=== PATIENT | female | born 1945 | race Caucasian/White ===

== ENCOUNTER 2017-12-25 07:58 | Emergency (ER) | payer MEDICARE, OTHER ==
[~2017-12-25] VITALS: Ht 165.1 cm; Wt 77.3 kg
[~2017-12-25 07:58] MED LIST: ALPR-623 PO; APIX5TAB3 PO; ASPI-611 PO; ATOR10TA70 PO; BENA40TA2 PO; CALC600T82 PO; GLIM2TAB2 PO; HYDR12.5 PO; LEVO100T46 PO; METF1000 PO; METO25TA6 PO; NOR5T PO
[2017-12-25 08:44] LABS: BASOPHILS % (AUTO) 0.2 % (0-1); EOSINOPHILS # (AUTO) 0.3 X10'3 (0-0.9); HEMATOCRIT 36.5 % (35.0-45.0); HEMOGLOBIN 12.4 g/dl (12.0-16.0); LYMPHOCYTES # (AUTO) 1.2 X10'3 (1.1-4.8); LYMPHOCYTES % (AUTO) 10.9 % (21-51); MEAN CORPUSCULAR HEMOGLOBIN 28.7 PG (27.0-31.0); MEAN CORPUSCULAR HGB CONC 34.1 % (33.0-36.5); MEAN CORPUSCULAR VOLUME 84.2 FL (78-98); MEAN PLATELET VOLUME 9.2 FL (7.4-10.4); MONOCYTES # (AUTO) 0.8 X10'3 (0-0.9); NEUTROPHILS # (AUTO) 8.6 X10'3 (1.8-7.7); NEUTROPHILS % (AUTO) 78.9 % (42-75); PLATELET COUNT 288 X10'3 (140-440); RED BLOOD COUNT 4.34 X10'6 (4.20-5.60); RED CELL DISTRIBUTION WIDTH 17.2 % (11.5-14.5); WHITE BLOOD COUNT 10.9 X10'3 (4.5-11.0)
[2017-12-25 09:03] LABS: ALANINE AMINOTRANSFERASE 24 U/L (12-78); ALBUMIN 3.5 G/DL (3.4-5.0); ALBUMIN/GLOBULIN RATIO 0.8 (1.1-1.5); ALKALINE PHOSPHATASE 69 IU/L (46-116); ANION GAP 10 (8-16); ASPARTATE AMINO TRANSFERASE 17 U/L (10-37); BILIRUBIN,TOTAL 0.7 MG/DL (0.1-1.0); BLOOD UREA NITROGEN 22 MG/DL (7-18); CALCIUM 9.3 MG/DL (8.5-10.1); CHLORIDE 103 MMOL/L (99-107); CREATININE 1.05 MG/DL (0.40-0.90); GLUCOSE 160 MG/DL (70-104); POTASSIUM 3.8 MMOL/L (3.5-5.1); SODIUM 142 MMOL/L (135-145); TOTAL CARBON DIOXIDE 29.2 MMOL/L (24-32); TOTAL PROTEIN 7.9 G/DL (6.4-8.2); TROPONIN I < 0.04 NG/ML (0.0-0.05); eGFR 52 ML/MIN
[2017-12-25 09:11] LABS: MAGNESIUM 1.7 MG/DL (1.5-2.4)
[2017-12-25 09:25] VITALS: BP 182/61
[2017-12-25] MEDS ORDERED: HYDROcodone/acetaminophen 10/325mg tab PO STA (09:31)
[2017-12-25] MEDS ORDERED: CYCL-1 PO (10:01)
[2017-12-25 10:06] LABS: PARTIAL THROMBOPLASTIN TIME 25 SECONDS (22-32); PROTHROMBIN TIME 10.2 SECONDS (9.0-12.0)
== END 2017-12-25 10:17 | disposition home or self-care (01) ==
LOC: ER 07:59
DX: M62.838 Other muscle spasm (principal); M54.2 Cervicalgia; I10 Essential (primary) hypertension; E78.00 Pure hypercholesterolemia, unspecified; E11.9 Type 2 diabetes mellitus without complications; G89.29 Other chronic pain; I25.2 Old myocardial infarction; I25.10 Atherosclerotic heart disease of native coronary artery without angina pectoris; I48.91 Unspecified atrial fibrillation; Z86.73 Personal history of transient ischemic attack (TIA), and cerebral infarction without residual deficits; Z95.1 Presence of aortocoronary bypass graft; Z79.84 Long term (current) use of oral hypoglycemic drugs; Z79.82 Long term (current) use of aspirin; Z79.899 Other long term (current) drug therapy
CPT/HCPCS: 36415; 71046; 72052; 72125; 80053; 82948; 83735; 84484; 85025; 85610; 85730; 93005; 99285

== ENCOUNTER 2018-02-15 06:12 | Inpatient (IN) | payer MEDICARE, OTHER ==
[2018-02-14 11:43] LABS: CLARITY,URINE CLEAR (Clear); COLOR,URINE YELLOW (Yellow); GLUCOSE, URINE NEGATIVE (Neg); KETONES,URINE NEGATIVE (Neg); LEUKOCYTE ESTERASE ,URINE NEGATIVE (Neg); NITRITES, URINE NEGATIVE (Neg); OCCULT BLOOD,URINE NEGATIVE (Neg); PROTEIN,URINE 30 mg/dl (Neg); UROBILINOGEN,URINE 0.2 E.U/dL (0.2-1.0)
[2018-02-14 11:43] LABS: BASOPHILS % (AUTO) 0.3 % (0-1); EOSINOPHILS # (AUTO) 0.2 X10'3 (0-0.9); EOSINOPHILS % (AUTO) 2.7 % (0-6); LYMPHOCYTES # (AUTO) 1.3 X10'3 (1.1-4.8); LYMPHOCYTES % (AUTO) 16.5 % (21-51); MEAN CORPUSCULAR HEMOGLOBIN 28.4 PG (27.0-31.0); MEAN CORPUSCULAR HGB CONC 33.3 % (33.0-36.5); MEAN CORPUSCULAR VOLUME 85.3 FL (78-98); MEAN PLATELET VOLUME 9.5 FL (7.4-10.4); MONOCYTES # (AUTO) 0.7 X10'3 (0-0.9); MONOCYTES % (AUTO) 8.1 % (2-12); NEUTROPHILS # (AUTO) 5.8 X10'3 (1.8-7.7); NEUTROPHILS % (AUTO) 72.4 % (42-75); PRE OP HEMATOCRIT 39.8 % (35.0-45.0); PRE OP HEMOGLOBIN 13.2 g/dL (12.0-16.0); PRE OP PLATELET COUNT 247 X10'3 (140-440); RED BLOOD COUNT 4.66 X10'6 (4.20-5.60)
[2018-02-14 11:46] LABS: UA COLLECTION TYPE CLN CATCH MIDSTREAM
[2018-02-14 11:48] LABS: SQUAMOUS EPITHELIAL CELL,UR FEW /LPF (FEW)
[2018-02-14 11:49] LABS: BACTERIA,URINE FEW /HPF (Neg); RBC,URINE 0-2 /HPF (0-2); WBC,URINE 0-4 /HPF (0-4)
[2018-02-14 11:52] LABS: HEMOGLOBIN A1C 7.5 % (4.5-6.2)
[2018-02-14 11:56] LABS: ALBUMIN 3.7 G/DL (3.4-5.0); ALBUMIN/GLOBULIN RATIO 0.9 (1.1-1.5); ALKALINE PHOSPHATASE 66 IU/L (46-116); BLOOD UREA NITROGEN 30 MG/DL (7-18); BUN/CREATININE RATIO 25.6 (6.6-38.0); CALCIUM 9.4 MG/DL (8.5-10.1); CHLORIDE 101 MMOL/L (99-107); CREATININE 1.17 MG/DL (0.40-0.90); PRE OP ALT 21 U/L (30-65); PRE OP ANION GAP 5 (8-16); PRE OP AST 17 U/L (10-37); PRE OP BILIRUB, TOTAL 0.4 MG/DL (0.0-1.0); PRE OP POTASSIUM 3.9 MMOL/L (3.4-5.1); PRE OP SODIUM 140 MMOL/L (135-145); TOTAL CARBON DIOXIDE 33.6 MMOL/L (24-32); TOTAL PROTEIN 7.9 G/DL (6.4-8.2); eGFR 45 ML/MIN
[2018-02-14 11:58] LABS: PRE OP GLUCOSE 219 MG/DL (70-104)
[2018-02-15] VITALS (24 sets, daily range): BP systolic 114–186; BP diastolic 45–96
[~2018-02-15] VITALS: Ht 152.4 cm; Wt 78.5 kg
[~2018-02-15 06:12] MED LIST changes: -APIX5TAB3 PO; -BENA40TA2 PO; -CALC600T82 PO; +DOCU-28 PO; +DOCUMENT DATE & TIME OF BETA-BLOCKER PO ONE; +HYDR-565 PO; -HYDR12.5 PO; +LISI-604 PO; +MULT-933 PO; +PANT40TA4 PO; +ceFAZolin inj. 2,000 MG in normal saline 100ml IV soln 100 ML IV ONE; +famotidine 20mg tablet PO ONE
[2018-02-15] MEDS ORDERED: nitroGLYCERIN-Tridil 50MG/D5W 250 ML IV PRN ×2 (06:33→13:05)
[2018-02-15] MEDS ORDERED: phenylephrine inj 10 MG in normal saline 250ml IV soln 250 ML IV PRN (06:33)
[2018-02-15] MEDS: ringers solution, lacted 1,000 ML IV SCH ×2 (07:09→15:39)
[2018-02-15] MEDS ORDERED: LORazepam 2 mg/ml vial IV ONE (07:25)
[2018-02-15] MEDS ORDERED: ondansetron/PF 4mg/2ml inj IV PRN ×2 (08:05→12:15)
[2018-02-15] MEDS ORDERED: HYDROcodone/acetaminophen 5mg/325mg tablet PO PRN (08:05)
[2018-02-15] MEDS ORDERED: CADD PCA waste documentation MC PRN (08:05)
[2018-02-15] MEDS ORDERED: naloxone 0.4 mg/ml inj IV PRN (08:05)
[2018-02-15] MEDS ORDERED: heparin 10,000 units/1 ML INJ ONE (09:26)
[2018-02-15] MEDS ORDERED: LIDOcaine 1% 30ml preserv. free vial ONE (09:27)
[2018-02-15] MEDS ORDERED: LIDOcaine 1% (10mg/ml) 2ml vial ONE (10:00)
[2018-02-15] MEDS ORDERED: sevoflurane 250ml liquid IH ONE (11:10)
[2018-02-15] MEDS ORDERED: ondansetron/PF 4mg/2ml inj ONE ×2 (11:10→12:36)
[2018-02-15] MEDS ORDERED: fentaNYL/PF 50MCG/1 ML 2ML syringe ONE (11:15)
[2018-02-15] MEDS ORDERED: ROPIVAcaine 0.5% (5mg/ml) 30ml vial ONE (11:36)
[2018-02-15] MEDS ORDERED: heparin 1,000unit/ml 10ml vial 10 ML ONE (11:42)
[2018-02-15] MEDS ORDERED: ringers solution, lacted 1,000 ML IV ONE (12:12)
[2018-02-15] MEDS ORDERED: proMETHazine 25mg rectal suppository RC PRN (12:15)
[2018-02-15] MEDS ORDERED: fentaNYL/PF 50MCG/1 ML 2ML syringe IV PRN (12:15)
[2018-02-15] MEDS ORDERED: labetalol 20mg/4ml (5mg/ml) syringe IV PRN (12:15)
[2018-02-15] MEDS ORDERED: hydrALAZINE 20mg/ml inj. IV PRN (12:15)
[2018-02-15] MEDS ORDERED: proCHLORperazine 10 MG/2 ml inj IV PRN (12:15)
[2018-02-15] MEDS ORDERED: LIDOcaine 2% (20mg/ml) 5ml vial ONE (12:34)
[2018-02-15] MEDS ORDERED: ePHEDrine 50MG/ML INJ. ONE (12:35)
[2018-02-15] MEDS ORDERED: glycopyrrolate 0.2mg/ml inj ONE (12:36)
[2018-02-15] MEDS ORDERED: dexamethasone sod phosphate 4mg/ml inj. ONE (12:36)
[2018-02-15] MEDS ORDERED: neostigmine methylsulfate 1 MG/ML 10ml vial ONE (12:36)
[2018-02-15] MEDS ORDERED: rocuronium 10mg/ml inj IV ONE (12:37)
[2018-02-15] MEDS ORDERED: phenylephrine inj 10 MG in normal saline 250ml IV soln 249 ML IV PRN (13:05)
[2018-02-15] MEDS: HYDROmorphone/NS 1 mg/ml CADD 50 ML IV SCH ×6 (13:28→23:00)
[2018-02-15] MEDS: fentaNYL/PF 50MCG/1 ML 2ML syringe IV PRN ×2 (13:57→14:08)
[2018-02-15] MEDS: ceFAZolin 1GM/D5W- ADD-VANTAGE 50 ML IV SCH (16:52)
[2018-02-15] MEDS: glimepiride 1 MG tablet PO SCH (20:00)
[2018-02-15] MEDS: metFORMIN 500mg tablet PO SCH (20:00)
[2018-02-15] MEDS: metoprolol tartrate 25mg tablet PO SCH (20:00)
[2018-02-15] MEDS: atorvastatin 10mg tablet PO SCH (21:05)
[2018-02-15] MEDS: docusate sod 100mg capsule PO SCH (21:05)
[2018-02-15] MEDS: ALPRAZolam 0.25mg tablet PO PRN (21:57)
[2018-02-16] VITALS (25 sets, daily range): BP systolic 130–190; BP diastolic 46–110
[2018-02-16] MEDS: ceFAZolin 1GM/D5W- ADD-VANTAGE 50 ML IV SCH ×2 (00:56→08:37)
[2018-02-16] MEDS: HYDROmorphone/NS 1 mg/ml CADD 50 ML IV SCH ×7 (01:00→13:00)
[2018-02-16] MEDS: metoprolol tartrate 25mg tablet PO SCH ×2 (07:49→20:23)
[2018-02-16] MEDS: docusate sod 100mg capsule PO SCH ×2 (07:49→20:23)
[2018-02-16] MEDS: levoTHYROXINE 100mcg tablet PO SCH (07:49)
[2018-02-16] MEDS: amLODIPine 5mg tablet PO SCH (07:50)
[2018-02-16] MEDS: glimepiride 1 MG tablet PO SCH ×2 (07:50→20:23)
[2018-02-16] MEDS: metFORMIN 500mg tablet PO SCH ×2 (07:50→20:23)
[2018-02-16] MEDS: multivitamins, therapeutics tablet PO SCH (07:50)
[2018-02-16] MEDS: aspirin 81mg tablet.DR PO SCH (07:50)
[2018-02-16] MEDS: pantoprazole 40mg Tablet.DR PO SCH (07:50)
[2018-02-16] MEDS: lisinopril 5mg tablet PO SCH (07:50)
[2018-02-16] MEDS: hydrALAZINE 20mg/ml inj. IV PRN ×2 (16:13→19:16)
[2018-02-16] MEDS: atorvastatin 10mg tablet PO SCH (20:45)
[2018-02-16] MEDS: ALPRAZolam 0.25mg tablet PO PRN (20:45)
[2018-02-17] VITALS (21 sets, daily range): BP systolic 137–184; BP diastolic 53–92
[2018-02-17] MEDS: hydrALAZINE 20mg/ml inj. IV PRN (02:52)
[2018-02-17] MEDS: metFORMIN 500mg tablet PO SCH ×2 (07:07→19:20)
[2018-02-17] MEDS: lisinopril 5mg tablet PO SCH (07:07)
[2018-02-17] MEDS: aspirin 81mg tablet.DR PO SCH (07:07)
[2018-02-17] MEDS: docusate sod 100mg capsule PO SCH ×2 (07:07→19:20)
[2018-02-17] MEDS: amLODIPine 5mg tablet PO SCH (07:07)
[2018-02-17] MEDS: metoprolol tartrate 25mg tablet PO SCH ×2 (07:07→19:19)
[2018-02-17] MEDS: levoTHYROXINE 100mcg tablet PO SCH (07:07)
[2018-02-17] MEDS: pantoprazole 40mg Tablet.DR PO SCH (07:08)
[2018-02-17] MEDS: glimepiride 1 MG tablet PO SCH ×2 (07:08→19:19)
[2018-02-17] MEDS: multivitamins, therapeutics tablet PO SCH (07:08)
[2018-02-17] MEDS ORDERED: LORazepam 2 mg/ml vial IV ONE (09:45)
[2018-02-17] MEDS: ALPRAZolam 0.25mg tablet PO PRN (19:19)
[2018-02-17] MEDS: atorvastatin 10mg tablet PO SCH ×2 (19:32→19:34)
[2018-02-17] MEDS: HYDROcodone/acetaminophen 10/325mg tab PO PRN (21:19)
[2018-02-18] VITALS (10 sets, daily range): BP systolic 89–199; BP diastolic 53–93
[2018-02-18] MEDS: HYDROcodone/acetaminophen 10/325mg tab PO PRN (05:24)
[2018-02-18] MEDS: lisinopril 5mg tablet PO SCH (09:21)
[2018-02-18] MEDS: glimepiride 1 MG tablet PO SCH ×2 (09:21→20:24)
[2018-02-18] MEDS: multivitamins, therapeutics tablet PO SCH (09:22)
[2018-02-18] MEDS: metFORMIN 500mg tablet PO SCH ×2 (09:22→20:24)
[2018-02-18] MEDS: amLODIPine 5mg tablet PO SCH (09:22)
[2018-02-18] MEDS: docusate sod 100mg capsule PO SCH ×2 (09:22→20:24)
[2018-02-18] MEDS: aspirin 81mg tablet.DR PO SCH (09:22)
[2018-02-18] MEDS: metoprolol tartrate 25mg tablet PO SCH ×2 (09:23→20:24)
[2018-02-18] MEDS: levoTHYROXINE 100mcg tablet PO SCH (09:23)
[2018-02-18] MEDS: pantoprazole 40mg Tablet.DR PO SCH (09:23)
[2018-02-18] MEDS ORDERED: lisinopril 5mg tablet PO ONE (12:05)
[2018-02-18] MEDS ORDERED: amLODIPine 5mg tablet PO ONE (12:05)
[2018-02-18] MEDS ORDERED: amLODIPine 5mg tablet PO SCH (12:30)
[2018-02-18] MEDS: lactulose 20gm/30ml cup PO SCH ×2 (13:45→20:24)
[2018-02-18] MEDS: hydrALAZINE 20mg/ml inj. IV PRN (17:04)
[2018-02-18] MEDS: atorvastatin 10mg tablet PO SCH (20:23)
[2018-02-18] MEDS: ALPRAZolam 0.25mg tablet PO PRN (20:44)
[2018-02-19 00:26] VITALS: BP 161/50
[2018-02-19] MEDS: lactulose 20gm/30ml cup PO SCH ×4 (02:00→19:40)
[2018-02-19 07:30] VITALS: BP 180/65
[2018-02-19] MEDS: glimepiride 1 MG tablet PO SCH ×2 (07:55→19:34)
[2018-02-19] MEDS: metFORMIN 500mg tablet PO SCH ×2 (07:56→19:42)
[2018-02-19] MEDS: docusate sod 100mg capsule PO SCH ×2 (07:56→19:41)
[2018-02-19] MEDS: aspirin 81mg tablet.DR PO SCH (07:56)
[2018-02-19] MEDS: metoprolol tartrate 25mg tablet PO SCH ×2 (07:57→19:40)
[2018-02-19] MEDS: multivitamins, therapeutics tablet PO SCH (07:57)
[2018-02-19] MEDS: pantoprazole 40mg Tablet.DR PO SCH (07:57)
[2018-02-19] MEDS: levoTHYROXINE 100mcg tablet PO SCH (07:57)
[2018-02-19] MEDS: amLODIPine 5mg tablet PO SCH (07:57)
[2018-02-19] MEDS ORDERED: lisinopril 10 MG tablet PO SCH (08:00)
[2018-02-19 09:15] VITALS: BP 154/77
[2018-02-19] MEDS: isosorbide mononitrate 30mg tab.SR.24H PO SCH ×2 (09:25→11:45)
[2018-02-19 11:30] VITALS: BP 161/63
[2018-02-19] MEDS: enoxaparin 30mg/0.3ml syringe SUBCUT SCH (11:45)
[2018-02-19] MEDS: polyethylene glycol 3350 17gm powd pack PO SCH (13:23)
[2018-02-19] MEDS: HYDROcodone/acetaminophen 10/325mg tab PO PRN (19:37)
[2018-02-19] MEDS: lisinopril 10 MG tablet PO SCH (19:42)
[2018-02-19] MEDS: atorvastatin 10mg tablet PO SCH (20:01)
[2018-02-19 21:35] VITALS: BP 168/59
[2018-02-19] MEDS: ALPRAZolam 0.25mg tablet PO PRN (22:51)
[2018-02-20] VITALS: BP 123/47
[2018-02-20] MEDS: lactulose 20gm/30ml cup PO SCH ×3 (02:00→14:00)
[2018-02-20 06:44] VITALS: BP 166/63
[2018-02-20] MEDS: polyethylene glycol 3350 17gm powd pack PO SCH (08:00)
[2018-02-20] MEDS: docusate sod 100mg capsule PO SCH (08:26)
[2018-02-20] MEDS: aspirin 81mg tablet.DR PO SCH (08:26)
[2018-02-20] MEDS: metFORMIN 500mg tablet PO SCH (08:26)
[2018-02-20] MEDS: glimepiride 1 MG tablet PO SCH (08:26)
[2018-02-20] MEDS: levoTHYROXINE 100mcg tablet PO SCH (08:27)
[2018-02-20] MEDS: metoprolol tartrate 25mg tablet PO SCH (08:27)
[2018-02-20] MEDS: lisinopril 10 MG tablet PO SCH (08:27)
[2018-02-20] MEDS: isosorbide mononitrate 30mg tab.SR.24H PO SCH (08:27)
[2018-02-20] MEDS: multivitamins, therapeutics tablet PO SCH (08:27)
[2018-02-20] MEDS: amLODIPine 5mg tablet PO SCH (08:27)
[2018-02-20] MEDS: enoxaparin 30mg/0.3ml syringe SUBCUT SCH (08:28)
[2018-02-20 11:24] VITALS: BP 148/61
[2018-02-20] MEDS ORDERED: LISI-600 PO (14:23)
[2018-02-20] MEDS ORDERED: AMLO10TA28 PO (14:23)
[2018-02-20] MEDS ORDERED: ISOS30TA6 PO (14:24)
== END 2018-02-20 16:55 | disposition home or self-care (01) | DRG 39 ==
LOC: PAS IN 06:12 → EDSTATUS 09:45 → CICU 2S 15:00 → EDSTATUS 16:00 → SUR 3N 02-17 17:56
PROVIDERS: ADMIT Surgery; ATTEND Surgery
PROC: 03CN0Z6 (ICD-10-PCS; 2018-02-15)
PROC: 03CL0ZZ Extirpation of Matter from Left Internal Carotid Artery, Open Approach (ICD-10-PCS; 2018-02-15)
PROC: 03UN0KZ Supplement Left External Carotid Artery with Nonautologous Tissue Substitute, Open Approach (ICD-10-PCS; 2018-02-15)
PROC: 4A10X4Z Monitoring of Central Nervous Electrical Activity, External Approach (ICD-10-PCS; 2018-02-15)
PROC: 03CJ0Z6 (ICD-10-PCS; principal; 2018-02-15 11:10)
DX: I65.22 Occlusion and stenosis of left carotid artery (principal); E11.9 Type 2 diabetes mellitus without complications; E03.9 Hypothyroidism, unspecified; E78.5 Hyperlipidemia, unspecified; I25.10 Atherosclerotic heart disease of native coronary artery without angina pectoris; K59.00 Constipation, unspecified; F41.9 Anxiety disorder, unspecified; I10 Essential (primary) hypertension; Z90.710 Acquired absence of both cervix and uterus; Z90.49 Acquired absence of other specified parts of digestive tract; Z95.1 Presence of aortocoronary bypass graft; Z98.41 Cataract extraction status, right eye; Z98.42 Cataract extraction status, left eye; Z79.899 Other long term (current) drug therapy; Z79.01 Long term (current) use of anticoagulants; Z79.82 Long term (current) use of aspirin; Z79.84 Long term (current) use of oral hypoglycemic drugs; Z79.4 Long term (current) use of insulin; Z86.718 Personal history of other venous thrombosis and embolism
CPT/HCPCS: 36415; 74018; 80053; 81001; 82948; 83036; 85025; 85610; 85730; 86885; 86900; 86901; 87070; 95813; 95816; 97110; 97116; 97162; 97530; A6213; A6258; A6402; A6449; A7000; C1768; J0360; J0690; J1100; J1170; J1644; J1650; J2001; J2060; J2370; J2405; J2710; J2795; J3010; J3490; J7030; J7120

== ENCOUNTER 2018-07-03 18:00 | Inpatient (IN) | payer MEDICARE, OTHER ==
[~2018-07-03] VITALS: Ht 162.6 cm; Wt 76.4 kg
[~2018-07-03 18:00] MED LIST changes: +AMLO10TA28 PO; -DOCUMENT DATE & TIME OF BETA-BLOCKER PO ONE; +HYDR-4353 PO; -HYDR-565 PO; -LISI-604 PO; -NOR5T PO; -ceFAZolin inj. 2,000 MG in normal saline 100ml IV soln 100 ML IV ONE; -famotidine 20mg tablet PO ONE
[2018-07-03] MEDS ORDERED: normal saline 1000ML IV soln IVB ONE (18:30)
[2018-07-03] MEDS ORDERED: ondansetron/PF 4mg/2ml inj IV ONE (18:30)
[2018-07-03 19:02] LABS: BASOPHILS % (AUTO) 0.2 % (0-1); EOSINOPHILS % (AUTO) 0 % (0-6); HEMATOCRIT 45.4 % (35.0-45.0); HEMOGLOBIN 14.6 g/dl (12.0-16.0); LYMPHOCYTES # (AUTO) 0.5 X10'3 (1.1-4.8); LYMPHOCYTES % (AUTO) 3.7 % (21-51); MEAN CORPUSCULAR HEMOGLOBIN 29.2 PG (27.0-31.0); MEAN CORPUSCULAR HGB CONC 32.2 % (33.0-36.5); MEAN CORPUSCULAR VOLUME 90.6 FL (78-98); MEAN PLATELET VOLUME 10.8 FL (7.4-10.4); MONOCYTES # (AUTO) 0.5 X10'3 (0-0.9); MONOCYTES % (AUTO) 3.8 % (2-12); NEUTROPHILS # (AUTO) 12.7 X10'3 (1.8-7.7); NEUTROPHILS % (AUTO) 92.3 % (42-75); PLATELET COUNT 262 X10'3 (140-440); RED BLOOD COUNT 5.01 X10'6 (4.20-5.60); RED CELL DISTRIBUTION WIDTH 15.6 % (11.5-14.5); WHITE BLOOD COUNT 13.7 X10'3 (4.5-11.0)
[2018-07-03 19:14] LABS: ALANINE AMINOTRANSFERASE 21 U/L (12-78); ALBUMIN 3.5 G/DL (3.4-5.0); ALBUMIN/GLOBULIN RATIO 0.9 (1.1-1.5); ALKALINE PHOSPHATASE 84 IU/L (46-116); ANION GAP 35 (8-16); ASPARTATE AMINO TRANSFERASE 15 U/L (10-37); BILIRUBIN,TOTAL 0.4 MG/DL (0.1-1.0); BLOOD UREA NITROGEN 89 MG/DL (7-18); BUN/CREATININE RATIO 8.9 (6.6-38.0); CALCIUM 8.8 MG/DL (8.5-10.1); CHLORIDE 95 MMOL/L (99-107); CREATININE 9.96 MG/DL (0.40-0.90); GLUCOSE 159 MG/DL (70-104); POTASSIUM 5.8 MMOL/L (3.5-5.1); SODIUM 140 MMOL/L (135-145); TOTAL PROTEIN 7.5 G/DL (6.4-8.2); eGFR 4 ML/MIN
[2018-07-03 19:38] LABS: CLARITY,URINE CLOUDY (Clear); COLOR,URINE STRAW (Yellow); GLUCOSE, URINE NEGATIVE (Neg); KETONES,URINE 15 mg/dl (Neg); LEUKOCYTE ESTERASE ,URINE NEGATIVE (Neg); NITRITES, URINE NEGATIVE (Neg); OCCULT BLOOD,URINE MODERATE (Neg); PROTEIN,URINE 100 mg/dl (Neg); UROBILINOGEN,URINE 0.2 E.U/dL (0.2-1.0)
[2018-07-03 19:40] LABS: UA COLLECTION TYPE CLN CATCH MIDSTREAM
[2018-07-03 19:49] LABS: RBC,URINE 0-2 /HPF (0-2); WBC,URINE NONE SEEN /HPF (0-4)
[2018-07-03 19:50] LABS: AMORPHOUS URATES 4+; BACTERIA,URINE NONE SEEN /HPF (Neg); MUCUS STRANDS NONE SEEN /LPF (Neg); SQUAMOUS EPITHELIAL CELL,UR MODERATE /LPF (FEW)
[2018-07-03] MEDS ORDERED: normal saline 1000ML IV soln IV ONE (19:55)
[2018-07-03] MEDS ORDERED: piperacillin/tazo 3.375gm/50ml 50 ML IV ONE (19:55)
[2018-07-03] MEDS ORDERED: calcium chloride 100 MG/1 ML inj IV ONE (19:55)
[2018-07-03] MEDS ORDERED: CefTRIAXone 2gm/D5W 50ml 50 ML IV ONE (21:15)
[2018-07-03] MEDS ORDERED: acetaminophen 325mg tablet PO PRN (21:30)
[2018-07-03] MEDS ORDERED: morphine 4 MG/ML inj SYRINge IV PRN (21:30)
[2018-07-03] MEDS ORDERED: ondansetron/PF 4mg/2ml inj IV PRN (21:30)
[2018-07-03] MEDS ORDERED: morphine 2 MG/ML inj. syringe IV PRN (21:30)
[2018-07-03] MEDS ORDERED: vancomycin/NS 1 GM ADD-VANTAGE 250 ML IV ONE ×2 (21:35→23:00)
[2018-07-03] MEDS ORDERED: sodium bicarbonate (8.4%) inj. 150 MEQ in dextrose 5%-water 1,000 ML IV SCH (21:40)
[2018-07-03] MEDS ORDERED: vancomycin/NS 1 GM ADD-VANTAGE 250 ML IV PRN (21:45)
[2018-07-03 22:04] LABS: INR 1.1 INR; PARTIAL THROMBOPLASTIN TIME 26 SECONDS (22-32); PROTHROMBIN TIME 10.9 SECONDS (9.0-12.0)
[2018-07-03 22:10] VITALS: BP 220/94
[2018-07-03] MEDS: normal saline 1000ml 1,000 ML IV SCH (22:25)
[2018-07-03 23:00] VITALS: BP 155/57
[2018-07-03] MEDS: piperacillin-tazo 2.25gm/50ml 50 ML IV SCH (23:14)
[2018-07-03 23:22] LABS: ALBUMIN 2.9 G/DL (3.4-5.0); ANION GAP 35 (8-16); BLOOD UREA NITROGEN 85 MG/DL (7-18); BUN/CREATININE RATIO 9.6 (6.6-38.0); CALCIUM 8.8 MG/DL (8.5-10.1); CHLORIDE 100 MMOL/L (99-107); CREATININE 8.88 MG/DL (0.40-0.90); GLUCOSE 136 MG/DL (70-104); SODIUM 141 MMOL/L (135-145); eGFR 4 ML/MIN
[2018-07-03 23:31] LABS: POTASSIUM 5.8 MMOL/L (3.5-5.1); TOTAL CARBON DIOXIDE 6.3 MMOL/L (24-32)
[2018-07-04] VITALS (24 sets, daily range): BP systolic 82–171; BP diastolic 40–81
[2018-07-04 00:09] LABS: TROPONIN I 0.07 NG/ML (0.0-0.05)
[2018-07-04 00:26] LABS: ABG HCO3 4.1 mmol/L (22.0-26.0); ABG OXYGEN SATURATION 97.5 % (95-98); ABG PCO2 (T) 16.5 mmHg (32.0-45.0); ABG PH (T) 7.001 (7.350-7.450); ABG PO2 (T) 123.2 mmHg (83-108); FCOHb 0.2 % (0.5-1.5); FLOW 0 L/min; FMetHb 0.4 % (0.3-1.12); FO2Hb 96.9 % (94-100); PATIENT TEMPERATURE 35.4; TOTAL HEMOGLOBIN 13.9 G/dl (12.0-16.0)
[2018-07-04] MEDS ORDERED: sodium bicarbonate (8.4%) 1 mEq/ml syringe IV ONE ×2 (00:30→06:40)
[2018-07-04] MEDS ORDERED: sodium bicarbonate (8.4%) inj. 150 MEQ in dextrose 5%-water 1,000 ML IV SCH (00:50)
[2018-07-04] MEDS: normal saline 1000ml 1,000 ML IV SCH ×3 (04:23→21:03)
[2018-07-04] MEDS ORDERED: ALPRAZolam 0.25mg tablet PO PRN (05:15)
[2018-07-04 05:42] LABS: BASOPHILS % (AUTO) 0.2 % (0-1); EOSINOPHILS # (AUTO) 0.1 X10'3 (0-0.9); EOSINOPHILS % (AUTO) 0.9 % (0-6); HEMATOCRIT 41.4 % (35.0-45.0); HEMOGLOBIN 13.2 g/dl (12.0-16.0); LYMPHOCYTES # (AUTO) 0.7 X10'3 (1.1-4.8); LYMPHOCYTES % (AUTO) 4.4 % (21-51); MEAN CORPUSCULAR HEMOGLOBIN 29.4 PG (27.0-31.0); MEAN CORPUSCULAR VOLUME 91.9 FL (78-98); MEAN PLATELET VOLUME 11.2 FL (7.4-10.4); MONOCYTES # (AUTO) 1.2 X10'3 (0-0.9); MONOCYTES % (AUTO) 7.4 % (2-12); NEUTROPHILS # (AUTO) 14.2 X10'3 (1.8-7.7); NEUTROPHILS % (AUTO) 87.1 % (42-75); PLATELET COUNT 230 X10'3 (140-440); WHITE BLOOD COUNT 16.3 X10'3 (4.5-11.0)
[2018-07-04] MEDS: piperacillin-tazo 2.25gm/50ml 50 ML IV SCH ×3 (06:06→21:06)
[2018-07-04 06:25] LABS: ALANINE AMINOTRANSFERASE 19 U/L (12-78); ALBUMIN 2.8 G/DL (3.4-5.0); ALBUMIN/GLOBULIN RATIO 0.8 (1.1-1.5); ALKALINE PHOSPHATASE 70 IU/L (46-116); ASPARTATE AMINO TRANSFERASE 16 U/L (10-37); BILIRUBIN,TOTAL 0.3 MG/DL (0.1-1.0); BLOOD UREA NITROGEN 82 MG/DL (7-18); BUN/CREATININE RATIO 9.1 (6.6-38.0); CALCIUM 8.2 MG/DL (8.5-10.1); CHLORIDE 98 MMOL/L (99-107); CREATININE 9.05 MG/DL (0.40-0.90); GLUCOSE 193 MG/DL (70-104); MAGNESIUM 1.7 MG/DL (1.5-2.4); POTASSIUM 5.7 MMOL/L (3.5-5.1); SODIUM 147 MMOL/L (135-145); TOTAL PROTEIN 6.5 G/DL (6.4-8.2); eGFR 4 ML/MIN
[2018-07-04 06:28] LABS: PHOSPHORUS 10.2 MG/DL (2.3-4.5)
[2018-07-04 06:35] LABS: ANION GAP 44 (8-16); TOTAL CARBON DIOXIDE < 5 MMOL/L (24-32)
[2018-07-04 06:39] LABS: HEMOGLOBIN A1C 6.9 % (4.5-6.2)
[2018-07-04] MEDS ORDERED: sodium bicarbonate (8.4%) 1 mEq/ml syringe ONE (06:43)
[2018-07-04 07:06] LABS: ABG BASE EXCESS -23.1 mmol/L (-2.0-3.0); ABG HCO3 4.4 mmol/L (22.0-26.0); ABG PCO2 (T) 13.5 mmHg (32.0-45.0); ABG PH (T) 7.122 (7.350-7.450); ABG PO2 (T) 128.3 mmHg (83-108); ALLEN'S TEST Positive; FCOHb 0.1 % (0.5-1.5); FMetHb 0.3 % (0.3-1.12); FO2Hb 97.6 % (94-100); PATIENT TEMPERATURE 35.2; TOTAL HEMOGLOBIN 13.1 G/dl (12.0-16.0)
[2018-07-04] MEDS ORDERED: heparin 1,000unit/ml 10ml vial 10 ML IV ONE (07:57)
[2018-07-04] MEDS: VANCOMYCIN LEVEL IV SCH ×2 (08:00→21:06)
[2018-07-04] MEDS ORDERED: heparin 1,000 units/ml 10ml inj IV ONE (08:00)
[2018-07-04] MEDS ORDERED: heparin 1,000 units/ml 10ml inj HE ONE ×2 (08:05)
[2018-07-04] MEDS: docusate sod 100mg capsule PO SCH ×2 (08:07→21:00)
[2018-07-04] MEDS: levoTHYROXINE 100mcg tablet PO SCH (08:07)
[2018-07-04] MEDS: multivitamins, therapeutics tablet PO SCH (08:07)
[2018-07-04] MEDS: pantoprazole 40mg Tablet.DR PO SCH (08:07)
[2018-07-04] MEDS: aspirin 81mg tab.chew PO SCH (08:08)
[2018-07-04] MEDS: metoprolol tartrate 25mg tablet PO SCH ×2 (08:32→21:00)
[2018-07-04] MEDS: amLODIPine 5mg tablet PO SCH (08:32)
[2018-07-04] MEDS: heparin, porcine 5000 units/ml vial SQ SCH ×2 (08:32→21:01)
[2018-07-04 09:27] LABS: VANCOMYCIN,RANDOM 16.1 UG/ML
[2018-07-04] MEDS ORDERED: atorvastatin 10mg tablet PO SCH (21:00)
[2018-07-04] MEDS: lactobacillus rhamnosus 10,000 MMU CELLS/CAPSULE PO SCH (21:00)
[2018-07-04 23:48] LABS: ALBUMIN 2.4 G/DL (3.4-5.0); ANION GAP 17 (8-16); BLOOD UREA NITROGEN 41 MG/DL (7-18); BUN/CREATININE RATIO 9.8 (6.6-38.0); CALCIUM 6.9 MG/DL (8.5-10.1); CHLORIDE 100 MMOL/L (99-107); CREATININE 4.17 MG/DL (0.40-0.90); GLUCOSE 147 MG/DL (70-104); POTASSIUM 4.1 MMOL/L (3.5-5.1); SODIUM 139 MMOL/L (135-145); eGFR 10 ML/MIN
[2018-07-05] VITALS (14 sets, daily range): BP systolic 96–147; BP diastolic 44–71
[2018-07-05] MEDS: piperacillin-tazo 2.25gm/50ml 50 ML IV SCH (05:16)
[2018-07-05] MEDS: normal saline 1000ml 1,000 ML IV SCH ×2 (05:16→09:41)
[2018-07-05 05:19] LABS: BASOPHILS % (AUTO) 0 % (0-1); EOSINOPHILS % (AUTO) 0 % (0-6); HEMATOCRIT 36.9 % (35.0-45.0); HEMOGLOBIN 12.1 g/dl (12.0-16.0); LYMPHOCYTES # (AUTO) 0.9 X10'3 (1.1-4.8); LYMPHOCYTES % (AUTO) 6.8 % (21-51); MEAN CORPUSCULAR HEMOGLOBIN 29.4 PG (27.0-31.0); MEAN CORPUSCULAR HGB CONC 32.9 % (33.0-36.5); MEAN CORPUSCULAR VOLUME 89.5 FL (78-98); MEAN PLATELET VOLUME 11.1 FL (7.4-10.4); MONOCYTES # (AUTO) 1.1 X10'3 (0-0.9); NEUTROPHILS # (AUTO) 11.4 X10'3 (1.8-7.7); NEUTROPHILS % (AUTO) 85.2 % (42-75); PLATELET COUNT 173 X10'3 (140-440); RED BLOOD COUNT 4.12 X10'6 (4.20-5.60); WHITE BLOOD COUNT 13.4 X10'3 (4.5-11.0)
[2018-07-05 05:55] LABS: ALANINE AMINOTRANSFERASE 24 U/L (12-78); ALBUMIN 2.4 G/DL (3.4-5.0); ALBUMIN/GLOBULIN RATIO 0.8 (1.1-1.5); ALKALINE PHOSPHATASE 57 IU/L (46-116); ANION GAP 15 (8-16); ASPARTATE AMINO TRANSFERASE 53 U/L (10-37); BILIRUBIN,TOTAL 0.4 MG/DL (0.1-1.0); BLOOD UREA NITROGEN 47 MG/DL (7-18); BUN/CREATININE RATIO 10.2 (6.6-38.0); CHLORIDE 100 MMOL/L (99-107); CREATININE 4.62 MG/DL (0.40-0.90); GLUCOSE 159 MG/DL (70-104); MAGNESIUM 1.7 MG/DL (1.5-2.4); PHOSPHORUS 5.9 MG/DL (2.3-4.5); POTASSIUM 4.2 MMOL/L (3.5-5.1); SODIUM 139 MMOL/L (135-145); TOTAL CARBON DIOXIDE 23.7 MMOL/L (24-32); TOTAL PROTEIN 5.4 G/DL (6.4-8.2); VANCOMYCIN,RANDOM 9.2 UG/ML; eGFR 9 ML/MIN
[2018-07-05 06:17] LABS: CALCIUM 6.9 MG/DL (8.5-10.1)
[2018-07-05] MEDS ORDERED: heparin 1,000unit/ml 10ml vial 10 ML IV ONE (07:06)
[2018-07-05] MEDS ORDERED: heparin 1,000 units/ml 10ml inj HE ONE ×2 (07:10)
[2018-07-05] MEDS ORDERED: albumin (human) 25% 100ml IV 100 ML IV PRN (07:10)
[2018-07-05] MEDS ORDERED: heparin 1,000 units/ml 10ml inj IV ONE (07:10)
[2018-07-05] MEDS: heparin, porcine 5000 units/ml vial SQ SCH ×3 (07:47→22:27)
[2018-07-05] MEDS: amLODIPine 5mg tablet PO SCH (08:00)
[2018-07-05] MEDS: lactobacillus rhamnosus 10,000 MMU CELLS/CAPSULE PO SCH ×3 (08:00→22:26)
[2018-07-05] MEDS: aspirin 81mg tab.chew PO SCH (08:00)
[2018-07-05] MEDS: metoprolol tartrate 25mg tablet PO SCH ×2 (08:00→20:00)
[2018-07-05] MEDS: docusate sod 100mg capsule PO SCH ×3 (08:00→22:26)
[2018-07-05] MEDS: levoTHYROXINE 100mcg tablet PO SCH (08:00)
[2018-07-05] MEDS: pantoprazole 40mg Tablet.DR PO SCH (08:00)
[2018-07-05] MEDS: multivitamins, therapeutics tablet PO SCH (08:00)
[2018-07-06] VITALS (7 sets, daily range): BP systolic 17–172; BP diastolic 54–65
[2018-07-06] MEDS: normal saline 1000ml 1,000 ML IV SCH (02:25)
[2018-07-06] MEDS: amLODIPine 5mg tablet PO SCH (08:49)
[2018-07-06] MEDS: multivitamins, therapeutics tablet PO SCH (08:49)
[2018-07-06] MEDS: aspirin 81mg tab.chew PO SCH (08:49)
[2018-07-06] MEDS: lactobacillus rhamnosus 10,000 MMU CELLS/CAPSULE PO SCH ×2 (08:49→20:00)
[2018-07-06] MEDS: docusate sod 100mg capsule PO SCH ×2 (08:49→20:00)
[2018-07-06] MEDS: pantoprazole 40mg Tablet.DR PO SCH (08:49)
[2018-07-06] MEDS: levoTHYROXINE 100mcg tablet PO SCH (08:49)
[2018-07-06] MEDS: metoprolol tartrate 25mg tablet PO SCH ×2 (08:49→20:00)
[2018-07-06] MEDS: heparin, porcine 5000 units/ml vial SQ SCH ×2 (08:51→20:00)
[2018-07-06 10:31] LABS: ALANINE AMINOTRANSFERASE 22 U/L (12-78); ALBUMIN 2.4 G/DL (3.4-5.0); ALBUMIN/GLOBULIN RATIO 0.8 (1.1-1.5); ALKALINE PHOSPHATASE 53 IU/L (46-116); ANION GAP 13 (8-16); ASPARTATE AMINO TRANSFERASE 47 U/L (10-37); BILIRUBIN,TOTAL 0.4 MG/DL (0.1-1.0); BLOOD UREA NITROGEN 64 MG/DL (7-18); CALCIUM 7.4 MG/DL (8.5-10.1); CHLORIDE 105 MMOL/L (99-107); CREATININE 5.83 MG/DL (0.40-0.90); GLUCOSE 144 MG/DL (70-104); POTASSIUM 3.3 MMOL/L (3.5-5.1); SODIUM 142 MMOL/L (135-145); TOTAL CARBON DIOXIDE 24.3 MMOL/L (24-32); TOTAL PROTEIN 5.4 G/DL (6.4-8.2); eGFR 7 ML/MIN
[2018-07-06 10:39] LABS: MAGNESIUM 1.9 MG/DL (1.5-2.4); PHOSPHORUS 5.6 MG/DL (2.3-4.5)
[2018-07-06 10:49] LABS: BASOPHILS % (AUTO) 0.3 % (0-1); EOSINOPHILS % (AUTO) 0.4 % (0-6); HEMOGLOBIN 11.3 g/dl (12.0-16.0); LYMPHOCYTES # (AUTO) 0.7 X10'3 (1.1-4.8); LYMPHOCYTES % (AUTO) 9.6 % (21-51); MEAN CORPUSCULAR HEMOGLOBIN 29.4 PG (27.0-31.0); MEAN CORPUSCULAR HGB CONC 33.1 % (33.0-36.5); MONOCYTES # (AUTO) 0.7 X10'3 (0-0.9); MONOCYTES % (AUTO) 8.9 % (2-12); NEUTROPHILS # (AUTO) 6.1 X10'3 (1.8-7.7); NEUTROPHILS % (AUTO) 80.8 % (42-75); PLATELET COUNT 112 X10'3 (140-440); RED BLOOD COUNT 3.82 X10'6 (4.20-5.60); RED CELL DISTRIBUTION WIDTH 16.1 % (11.5-14.5); WHITE BLOOD COUNT 7.5 X10'3 (4.5-11.0)
[2018-07-06 10:51] LABS: MEAN PLATELET VOLUME 10.7 FL (7.4-10.4)
[2018-07-06] MEDS ORDERED: heparin 1,000unit/ml 10ml vial 10 ML IV ONE (11:13)
[2018-07-06] MEDS ORDERED: epoetin 20,000 units/ml inj IV ONE (11:15)
[2018-07-06] MEDS ORDERED: heparin 1,000 units/ml 10ml inj IV ONE (11:15)
[2018-07-06] MEDS ORDERED: albumin (human) 25% 100ml IV 100 ML IV PRN (11:15)
[2018-07-06] MEDS ORDERED: heparin 1,000 units/ml 10ml inj HE ONE ×2 (11:20)
[2018-07-06] MEDS ORDERED: normal saline 1000ml 1,000 ML IV SCH (13:32)
[2018-07-06] MEDS ORDERED: fentaNYL/PF 50MCG/1 ML 2ML syringe IV PRN (13:35)
[2018-07-06] MEDS ORDERED: LIDOcaine 1%/PF 5ML 10 MG/ML VIAL SQ ONE (13:35)
[2018-07-06] MEDS ORDERED: heparin 1,000 units/ml 10ml inj ICATH ONE (13:35)
[2018-07-06] MEDS ORDERED: midazolam 2 mg/2 ml injection IV PRN (13:35)
[2018-07-06] MEDS ORDERED: heparin 1,000unit/ml 10ml vial 10 ML ONE (14:01)
[2018-07-06] MEDS ORDERED: LIDOcaine 1%/PF 5ML 10 MG/ML VIAL ONE (14:01)
[2018-07-06] MEDS ORDERED: fentaNYL/PF 50MCG/1 ML 2ML syringe ONE (14:01)
[2018-07-06] MEDS ORDERED: midazolam 2 mg/2 ml injection ONE (14:01)
[2018-07-07] MEDS: levoTHYROXINE 100mcg tablet PO SCH (07:58)
[2018-07-07] MEDS: multivitamins, therapeutics tablet PO SCH (07:58)
[2018-07-07] MEDS: lactobacillus rhamnosus 10,000 MMU CELLS/CAPSULE PO SCH ×2 (07:58→20:00)
[2018-07-07] MEDS: metoprolol tartrate 25mg tablet PO SCH ×2 (08:00→20:00)
[2018-07-07] MEDS: heparin, porcine 5000 units/ml vial SQ SCH ×2 (08:00→20:00)
[2018-07-07] MEDS: pantoprazole 40mg Tablet.DR PO SCH (08:00)
[2018-07-07] MEDS: docusate sod 100mg capsule PO SCH ×2 (08:00→20:00)
[2018-07-07] MEDS: amLODIPine 5mg tablet PO SCH (08:00)
[2018-07-07] MEDS: aspirin 81mg tab.chew PO SCH (08:02)
[2018-07-07 09:35] LABS: BASOPHILS % (AUTO) 0.3 % (0-1); EOSINOPHILS % (AUTO) 0.4 % (0-6); HEMATOCRIT 33.8 % (35.0-45.0); HEMOGLOBIN 11.4 g/dl (12.0-16.0); LYMPHOCYTES # (AUTO) 0.5 X10'3 (1.1-4.8); LYMPHOCYTES % (AUTO) 17.5 % (21-51); MEAN CORPUSCULAR HEMOGLOBIN 29.7 PG (27.0-31.0); MEAN CORPUSCULAR HGB CONC 33.6 % (33.0-36.5); MEAN CORPUSCULAR VOLUME 88.2 FL (78-98); MEAN PLATELET VOLUME 11.4 FL (7.4-10.4); MONOCYTES # (AUTO) 0.2 X10'3 (0-0.9); MONOCYTES % (AUTO) 6.2 % (2-12); NEUTROPHILS # (AUTO) 2.1 X10'3 (1.8-7.7); NEUTROPHILS % (AUTO) 75.6 % (42-75); PLATELET COUNT 106 X10'3 (140-440); RED BLOOD COUNT 3.83 X10'6 (4.20-5.60); RED CELL DISTRIBUTION WIDTH 15.5 % (11.5-14.5); WHITE BLOOD COUNT 2.8 X10'3 (4.5-11.0)
[2018-07-07 09:51] LABS: ALANINE AMINOTRANSFERASE 23 U/L (12-78); ALBUMIN 2.1 G/DL (3.4-5.0); ALBUMIN/GLOBULIN RATIO 0.6 (1.1-1.5); ALKALINE PHOSPHATASE 58 IU/L (46-116); ANION GAP 11 (8-16); ASPARTATE AMINO TRANSFERASE 42 U/L (10-37); BILIRUBIN,TOTAL 0.5 MG/DL (0.1-1.0); BLOOD UREA NITROGEN 26 MG/DL (7-18); BUN/CREATININE RATIO 8.4 (6.6-38.0); CALCIUM 7.3 MG/DL (8.5-10.1); CHLORIDE 103 MMOL/L (99-107); GLUCOSE 165 MG/DL (70-104); MAGNESIUM 1.8 MG/DL (1.5-2.4); PHOSPHORUS 3.5 MG/DL (2.3-4.5); POTASSIUM 3.4 MMOL/L (3.5-5.1); SODIUM 140 MMOL/L (135-145); TOTAL CARBON DIOXIDE 25.6 MMOL/L (24-32); TOTAL PROTEIN 5.4 G/DL (6.4-8.2); eGFR 15 ML/MIN
[2018-07-07 09:57] LABS: PLATELET ESTIMATE DECREASED; TOTAL CELLS COUNTED 100
[2018-07-07 10:00] VITALS: BP 111/54
[2018-07-07 12:30] VITALS: BP 146/49
[2018-07-07] MEDS: NUT.TX.IMP.RENAL FXN,LAC-REDUC (Nepro) 237 ML VANILLA PO SCH (18:00)
[2018-07-07 19:00] VITALS: BP 171/70
[2018-07-07 23:00] VITALS: BP 181/59
[2018-07-08] VITALS (7 sets, daily range): BP systolic 151–196; BP diastolic 43–68
[2018-07-08] MEDS ORDERED: hydrALAZINE 20mg/ml inj. IV ONE (02:05)
[2018-07-08 07:32] LABS: BASOPHILS % (AUTO) 0.3 % (0-1); EOSINOPHILS # (AUTO) 0.1 X10'3 (0-0.9); EOSINOPHILS % (AUTO) 1.1 % (0-6); HEMATOCRIT 36.5 % (35.0-45.0); HEMOGLOBIN 12.1 g/dl (12.0-16.0); LYMPHOCYTES % (AUTO) 12.8 % (21-51); MEAN CORPUSCULAR HEMOGLOBIN 29.6 PG (27.0-31.0); MEAN CORPUSCULAR VOLUME 89.5 FL (78-98); MEAN PLATELET VOLUME 11.1 FL (7.4-10.4); MONOCYTES # (AUTO) 0.7 X10'3 (0-0.9); MONOCYTES % (AUTO) 9.6 % (2-12); NEUTROPHILS # (AUTO) 5.9 X10'3 (1.8-7.7); NEUTROPHILS % (AUTO) 76.2 % (42-75); PLATELET COUNT 118 X10'3 (140-440); RED BLOOD COUNT 4.08 X10'6 (4.20-5.60); RED CELL DISTRIBUTION WIDTH 15.1 % (11.5-14.5); WHITE BLOOD COUNT 7.7 X10'3 (4.5-11.0)
[2018-07-08 07:45] LABS: ALANINE AMINOTRANSFERASE 26 U/L (12-78); ALBUMIN 2.1 G/DL (3.4-5.0); ALBUMIN/GLOBULIN RATIO 0.6 (1.1-1.5); ALKALINE PHOSPHATASE 64 IU/L (46-116); ANION GAP 11 (8-16); ASPARTATE AMINO TRANSFERASE 38 U/L (10-37); BILIRUBIN,TOTAL 0.5 MG/DL (0.1-1.0); BLOOD UREA NITROGEN 34 MG/DL (7-18); BUN/CREATININE RATIO 9.4 (6.6-38.0); CALCIUM 7.6 MG/DL (8.5-10.1); CHLORIDE 101 MMOL/L (99-107); CREATININE 3.62 MG/DL (0.40-0.90); GLUCOSE 130 MG/DL (70-104); MAGNESIUM 1.9 MG/DL (1.5-2.4); PHOSPHORUS 3.6 MG/DL (2.3-4.5); SODIUM 139 MMOL/L (135-145); TOTAL CARBON DIOXIDE 26.7 MMOL/L (24-32); TOTAL PROTEIN 5.7 G/DL (6.4-8.2); eGFR 12 ML/MIN
[2018-07-08] MEDS: heparin, porcine 5000 units/ml vial SQ SCH ×2 (08:00→20:00)
[2018-07-08] MEDS: NUT.TX.IMP.RENAL FXN,LAC-REDUC (Nepro) 237 ML VANILLA PO SCH ×3 (08:00→18:00)
[2018-07-08] MEDS ORDERED: magnesium Cl slow-release 64mg tablet PO PRN (08:25)
[2018-07-08] MEDS ORDERED: potassium Cl 20 mEq SR tablet PO PRN ×2 (08:25)
[2018-07-08] MEDS ORDERED: potassium Cl 40MEQ/NS 500ml 500 ML IV PRN ×2 (08:25)
[2018-07-08] MEDS ORDERED: magnesium 4gm in 100ml NS 100 ML IV PRN (08:25)
[2018-07-08] MEDS: amLODIPine 5mg tablet PO SCH (09:07)
[2018-07-08] MEDS: levoTHYROXINE 100mcg tablet PO SCH (09:08)
[2018-07-08] MEDS: multivitamins, therapeutics tablet PO SCH (09:09)
[2018-07-08] MEDS: pantoprazole 40mg Tablet.DR PO SCH (09:09)
[2018-07-08] MEDS: lactobacillus rhamnosus 10,000 MMU CELLS/CAPSULE PO SCH ×2 (09:09→20:09)
[2018-07-08] MEDS: docusate sod 100mg capsule PO SCH ×2 (09:09→20:09)
[2018-07-08] MEDS: metoprolol tartrate 25mg tablet PO SCH ×2 (09:09→20:09)
[2018-07-08] MEDS: aspirin 81mg tab.chew PO SCH (09:10)
[2018-07-08 11:18] LABS: LARGE PLATELETS FEW; PLATELET ESTIMATE DECREASED
[2018-07-08] MEDS ORDERED: glucagon, human recombinant 1mg kit SUBCUT PRN (15:05)
[2018-07-08] MEDS ORDERED: MESSAGE TO PHARMACY PO ONE (15:05)
[2018-07-08] MEDS ORDERED: dextrose ORAL solution 15 GM/59 ML bottle PO PRN ×2 (15:05)
[2018-07-08] MEDS ORDERED: dextrose 50%-water 50ml dispensing syringe IV PRN ×2 (15:05)
[2018-07-08] MEDS: insulin Lispro (HumaLOG) vial - multi-dose SQ SCH (20:08)
[2018-07-08] MEDS: insulin glargine (Lantus) pen - multi-dose SQ SCH (21:49)
[2018-07-09] VITALS (7 sets, daily range): BP systolic 112–167; BP diastolic 38–66
[2018-07-09] MEDS: acetaminophen 325mg tablet PO PRN (00:32)
[2018-07-09 03:56] LABS: BASOPHILS % (AUTO) 0.5 % (0-1); EOSINOPHILS # (AUTO) 0.2 X10'3 (0-0.9); EOSINOPHILS % (AUTO) 2.5 % (0-6); HEMATOCRIT 26.2 % (35.0-45.0); HEMOGLOBIN 8.7 g/dl (12.0-16.0); LYMPHOCYTES # (AUTO) 1.3 X10'3 (1.1-4.8); LYMPHOCYTES % (AUTO) 15.4 % (21-51); MEAN CORPUSCULAR HEMOGLOBIN 29.4 PG (27.0-31.0); MEAN CORPUSCULAR HGB CONC 33.1 % (33.0-36.5); MEAN CORPUSCULAR VOLUME 88.8 FL (78-98); MEAN PLATELET VOLUME 11.1 FL (7.4-10.4); NEUTROPHILS # (AUTO) 6.2 X10'3 (1.8-7.7); NEUTROPHILS % (AUTO) 70.6 % (42-75); PLATELET COUNT 143 X10'3 (140-440); RED BLOOD COUNT 2.95 X10'6 (4.20-5.60); RED CELL DISTRIBUTION WIDTH 15.3 % (11.5-14.5); WHITE BLOOD COUNT 8.7 X10'3 (4.5-11.0)
[2018-07-09 04:05] LABS: ALANINE AMINOTRANSFERASE 27 U/L (12-78); ALBUMIN/GLOBULIN RATIO 0.6 (1.1-1.5); ALKALINE PHOSPHATASE 56 IU/L (46-116); ANION GAP 9 (8-16); ASPARTATE AMINO TRANSFERASE 33 U/L (10-37); BILIRUBIN,TOTAL 0.4 MG/DL (0.1-1.0); BLOOD UREA NITROGEN 38 MG/DL (7-18); CALCIUM 7.6 MG/DL (8.5-10.1); CHLORIDE 101 MMOL/L (99-107); CREATININE 3.44 MG/DL (0.40-0.90); GLUCOSE 153 MG/DL (70-104); MAGNESIUM 1.6 MG/DL (1.5-2.4); PHOSPHORUS 3.5 MG/DL (2.3-4.5); SODIUM 139 MMOL/L (135-145); TOTAL CARBON DIOXIDE 29.3 MMOL/L (24-32); TOTAL PROTEIN 5.3 G/DL (6.4-8.2); eGFR 13 ML/MIN
[2018-07-09] MEDS: NUT.TX.IMP.RENAL FXN,LAC-REDUC (Nepro) 237 ML VANILLA PO SCH ×3 (08:00→17:35)
[2018-07-09] MEDS: amLODIPine 5mg tablet PO SCH (09:12)
[2018-07-09] MEDS: aspirin 81mg tab.chew PO SCH (09:12)
[2018-07-09] MEDS: docusate sod 100mg capsule PO SCH ×2 (09:12→21:45)
[2018-07-09] MEDS: pantoprazole 40mg Tablet.DR PO SCH (09:12)
[2018-07-09] MEDS: levoTHYROXINE 100mcg tablet PO SCH (09:12)
[2018-07-09] MEDS: metoprolol tartrate 25mg tablet PO SCH ×2 (09:13→21:46)
[2018-07-09] MEDS: heparin, porcine 5000 units/ml vial SQ SCH ×2 (09:13→21:46)
[2018-07-09] MEDS: lactobacillus rhamnosus 10,000 MMU CELLS/CAPSULE PO SCH ×2 (09:13→21:46)
[2018-07-09] MEDS: multivitamins, therapeutics tablet PO SCH (09:14)
[2018-07-09] MEDS ORDERED: potassium Cl oral solution 20 MEQ/15 ML PO ONE (09:20)
[2018-07-09] MEDS: insulin Lispro (HumaLOG) vial - multi-dose SQ SCH ×3 (10:24→19:34)
[2018-07-09 15:05] LABS: OCCULT BLOOD STOOL NEGATIVE (Neg)
[2018-07-09] MEDS: insulin glargine (Lantus) pen - multi-dose SQ SCH (21:43)
[2018-07-10 03:00] VITALS: BP 179/63
[2018-07-10] MEDS: levoTHYROXINE 100mcg tablet PO SCH (08:45)
[2018-07-10] MEDS: metoprolol tartrate 25mg tablet PO SCH ×2 (08:45→20:08)
[2018-07-10] MEDS: docusate sod 100mg capsule PO SCH ×2 (08:46→20:08)
[2018-07-10] MEDS: pantoprazole 40mg Tablet.DR PO SCH (08:46)
[2018-07-10] MEDS: aspirin 81mg tab.chew PO SCH (08:46)
[2018-07-10] MEDS: multivitamins, therapeutics tablet PO SCH (08:46)
[2018-07-10] MEDS: amLODIPine 5mg tablet PO SCH (08:46)
[2018-07-10] MEDS: lactobacillus rhamnosus 10,000 MMU CELLS/CAPSULE PO SCH ×2 (08:46→20:08)
[2018-07-10] MEDS: heparin, porcine 5000 units/ml vial SQ SCH ×2 (08:47→20:09)
[2018-07-10] MEDS: NUT.TX.IMP.RENAL FXN,LAC-REDUC (Nepro) 237 ML VANILLA PO SCH ×3 (08:48→17:22)
[2018-07-10 10:21] LABS: BASOPHILS % (AUTO) 0.2 % (0-1); EOSINOPHILS # (AUTO) 0.3 X10'3 (0-0.9); EOSINOPHILS % (AUTO) 3.4 % (0-6); HEMATOCRIT 38.5 % (35.0-45.0); HEMOGLOBIN 12.7 g/dl (12.0-16.0); LYMPHOCYTES # (AUTO) 1.1 X10'3 (1.1-4.8); LYMPHOCYTES % (AUTO) 11.5 % (21-51); MEAN CORPUSCULAR HEMOGLOBIN 29.4 PG (27.0-31.0); MEAN CORPUSCULAR VOLUME 89.1 FL (78-98); MEAN PLATELET VOLUME 10.8 FL (7.4-10.4); MONOCYTES # (AUTO) 0.8 X10'3 (0-0.9); MONOCYTES % (AUTO) 9.2 % (2-12); NEUTROPHILS % (AUTO) 75.7 % (42-75); PLATELET COUNT 178 X10'3 (140-440); RED BLOOD COUNT 4.32 X10'6 (4.20-5.60); RED CELL DISTRIBUTION WIDTH 15.1 % (11.5-14.5); WHITE BLOOD COUNT 9.2 X10'3 (4.5-11.0)
[2018-07-10 10:29] LABS: ALANINE AMINOTRANSFERASE 30 U/L (12-78); ALBUMIN 2.2 G/DL (3.4-5.0); ALBUMIN/GLOBULIN RATIO 0.6 (1.1-1.5); ALKALINE PHOSPHATASE 69 IU/L (46-116); ANION GAP 11 (8-16); ASPARTATE AMINO TRANSFERASE 27 U/L (10-37); BILIRUBIN,TOTAL 0.3 MG/DL (0.1-1.0); BLOOD UREA NITROGEN 43 MG/DL (7-18); BUN/CREATININE RATIO 14.7 (6.6-38.0); CALCIUM 7.9 MG/DL (8.5-10.1); CHLORIDE 104 MMOL/L (99-107); CREATININE 2.93 MG/DL (0.40-0.90); GLUCOSE 184 MG/DL (70-104); MAGNESIUM 1.5 MG/DL (1.5-2.4); PHOSPHORUS 3.3 MG/DL (2.3-4.5); POTASSIUM 3.2 MMOL/L (3.5-5.1); SODIUM 143 MMOL/L (135-145); TOTAL CARBON DIOXIDE 28.3 MMOL/L (24-32); TOTAL PROTEIN 6.2 G/DL (6.4-8.2); eGFR 16 ML/MIN
[2018-07-10 11:00] VITALS: BP 140/49
[2018-07-10] MEDS: insulin Lispro (HumaLOG) vial - multi-dose SQ SCH ×2 (14:05→19:01)
[2018-07-10 15:00] VITALS: BP 159/47
[2018-07-10 19:00] VITALS: BP 182/63
[2018-07-10] MEDS: insulin glargine (Lantus) pen - multi-dose SQ SCH (21:35)
[2018-07-10 23:00] VITALS: BP 157/41
[2018-07-10] MEDS: acetaminophen 325mg tablet PO PRN (23:38)
[2018-07-11 03:00] VITALS: BP 153/38
[2018-07-11 05:21] LABS: HBSAG SCREEN Negative (Negative); HEP B CORE AB, IGM Negative (Negative); HEPATITIS C ANTIBODY 0.2 s/co ratio (0.0-0.9)
[2018-07-11 05:56] LABS: BASOPHILS # (AUTO) 0.1 X10'3 (0-0.2); BASOPHILS % (AUTO) 1.2 % (0-1); EOSINOPHILS # (AUTO) 0.3 X10'3 (0-0.9); EOSINOPHILS % (AUTO) 2.9 % (0-6); HEMATOCRIT 33.1 % (35.0-45.0); HEMOGLOBIN 10.9 g/dl (12.0-16.0); LYMPHOCYTES # (AUTO) 1.7 X10'3 (1.1-4.8); LYMPHOCYTES % (AUTO) 18.2 % (21-51); MEAN CORPUSCULAR HEMOGLOBIN 29.5 PG (27.0-31.0); MEAN CORPUSCULAR HGB CONC 32.9 % (33.0-36.5); MEAN CORPUSCULAR VOLUME 89.5 FL (78-98); MEAN PLATELET VOLUME 11.3 FL (7.4-10.4); MONOCYTES # (AUTO) 0.9 X10'3 (0-0.9); MONOCYTES % (AUTO) 9.5 % (2-12); NEUTROPHILS # (AUTO) 6.3 X10'3 (1.8-7.7); NEUTROPHILS % (AUTO) 68.2 % (42-75); PLATELET COUNT 166 X10'3 (140-440); WHITE BLOOD COUNT 9.3 X10'3 (4.5-11.0)
[2018-07-11 06:00] VITALS: BP 168/52
[2018-07-11 06:07] LABS: ALANINE AMINOTRANSFERASE 31 U/L (12-78); ALBUMIN 2.1 G/DL (3.4-5.0); ALBUMIN/GLOBULIN RATIO 0.6 (1.1-1.5); ALKALINE PHOSPHATASE 58 IU/L (46-116); ANION GAP 9 (8-16); ASPARTATE AMINO TRANSFERASE 27 U/L (10-37); BILIRUBIN,TOTAL 0.3 MG/DL (0.1-1.0); BLOOD UREA NITROGEN 47 MG/DL (7-18); BUN/CREATININE RATIO 18.8 (6.6-38.0); CALCIUM 7.9 MG/DL (8.5-10.1); CHLORIDE 103 MMOL/L (99-107); GLUCOSE 109 MG/DL (70-104); MAGNESIUM 1.3 MG/DL (1.5-2.4); PHOSPHORUS 3.3 MG/DL (2.3-4.5); POTASSIUM 3.1 MMOL/L (3.5-5.1); SODIUM 142 MMOL/L (135-145); TOTAL PROTEIN 5.8 G/DL (6.4-8.2); eGFR 19 ML/MIN
[2018-07-11] MEDS: pantoprazole 40mg Tablet.DR PO SCH (08:00)
[2018-07-11] MEDS: metoprolol tartrate 25mg tablet PO SCH ×2 (08:00→19:13)
[2018-07-11] MEDS: levoTHYROXINE 100mcg tablet PO SCH (08:00)
[2018-07-11] MEDS: amLODIPine 5mg tablet PO SCH (08:01)
[2018-07-11] MEDS: multivitamins, therapeutics tablet PO SCH (08:01)
[2018-07-11] MEDS: aspirin 81mg tab.chew PO SCH (08:01)
[2018-07-11] MEDS: lactobacillus rhamnosus 10,000 MMU CELLS/CAPSULE PO SCH ×2 (08:01→19:13)
[2018-07-11] MEDS: docusate sod 100mg capsule PO SCH ×2 (08:01→19:13)
[2018-07-11] MEDS: heparin, porcine 5000 units/ml vial SQ SCH ×2 (08:03→19:13)
[2018-07-11] MEDS: NUT.TX.IMP.RENAL FXN,LAC-REDUC (Nepro) 237 ML VANILLA PO SCH ×3 (08:03→18:00)
[2018-07-11] MEDS ORDERED: LIDOcaine 1%/PF 5ML 10 MG/ML VIAL ONE (08:15)
[2018-07-11] MEDS: insulin Lispro (HumaLOG) vial - multi-dose SQ SCH ×4 (09:46→21:04)
[2018-07-11 11:54] VITALS: BP 138/58
[2018-07-11 12:04] LABS: OCCULT BLOOD STOOL NEGATIVE (Neg)
[2018-07-11 15:00] VITALS: BP 154/55
[2018-07-11 18:00] VITALS: BP 146/51
[2018-07-11] MEDS: insulin glargine (Lantus) pen - multi-dose SQ SCH (21:06)
[2018-07-11 22:00] VITALS: BP 158/45
[2018-07-12 02:00] VITALS: BP 156/48
[2018-07-12 07:00] VITALS: BP 150/53
[2018-07-12] MEDS: aspirin 81mg tab.chew PO SCH (07:11)
[2018-07-12] MEDS: lactobacillus rhamnosus 10,000 MMU CELLS/CAPSULE PO SCH ×2 (07:11→20:11)
[2018-07-12] MEDS: metoprolol tartrate 25mg tablet PO SCH ×2 (07:13→20:12)
[2018-07-12] MEDS: docusate sod 100mg capsule PO SCH ×2 (07:13→20:12)
[2018-07-12] MEDS: amLODIPine 5mg tablet PO SCH (07:14)
[2018-07-12] MEDS: levoTHYROXINE 100mcg tablet PO SCH (07:15)
[2018-07-12] MEDS: multivitamins, therapeutics tablet PO SCH (07:15)
[2018-07-12] MEDS: pantoprazole 40mg Tablet.DR PO SCH (07:15)
[2018-07-12] MEDS: heparin, porcine 5000 units/ml vial SQ SCH ×2 (07:20→20:11)
[2018-07-12 07:31] LABS: BASOPHILS # (AUTO) 0.1 X10'3 (0-0.2); BASOPHILS % (AUTO) 1.4 % (0-1); EOSINOPHILS # (AUTO) 0.2 X10'3 (0-0.9); EOSINOPHILS % (AUTO) 2.6 % (0-6); HEMATOCRIT 34.4 % (35.0-45.0); HEMOGLOBIN 11.4 g/dl (12.0-16.0); LYMPHOCYTES # (AUTO) 1.5 X10'3 (1.1-4.8); LYMPHOCYTES % (AUTO) 19.2 % (21-51); MEAN CORPUSCULAR HEMOGLOBIN 29.6 PG (27.0-31.0); MEAN CORPUSCULAR HGB CONC 33.2 % (33.0-36.5); MEAN CORPUSCULAR VOLUME 89.3 FL (78-98); MEAN PLATELET VOLUME 11.5 FL (7.4-10.4); MONOCYTES # (AUTO) 0.8 X10'3 (0-0.9); MONOCYTES % (AUTO) 9.6 % (2-12); NEUTROPHILS # (AUTO) 5.4 X10'3 (1.8-7.7); NEUTROPHILS % (AUTO) 67.2 % (42-75); PLATELET COUNT 188 X10'3 (140-440); RED BLOOD COUNT 3.85 X10'6 (4.20-5.60); RED CELL DISTRIBUTION WIDTH 15.4 % (11.5-14.5)
[2018-07-12 08:11] LABS: ALANINE AMINOTRANSFERASE 35 U/L (12-78); ALBUMIN/GLOBULIN RATIO 0.5 (1.1-1.5); ALKALINE PHOSPHATASE 69 IU/L (46-116); ANION GAP 9 (8-16); ASPARTATE AMINO TRANSFERASE 32 U/L (10-37); BILIRUBIN,TOTAL 0.2 MG/DL (0.1-1.0); BLOOD UREA NITROGEN 49 MG/DL (7-18); CALCIUM 7.8 MG/DL (8.5-10.1); CHLORIDE 103 MMOL/L (99-107); CREATININE 2.04 MG/DL (0.40-0.90); GLUCOSE 151 MG/DL (70-104); MAGNESIUM 1.3 MG/DL (1.5-2.4); PHOSPHORUS 2.7 MG/DL (2.3-4.5); POTASSIUM 3.4 MMOL/L (3.5-5.1); SODIUM 142 MMOL/L (135-145); TOTAL CARBON DIOXIDE 30.1 MMOL/L (24-32); TOTAL PROTEIN 5.7 G/DL (6.4-8.2); eGFR 24 ML/MIN
[2018-07-12] MEDS: NUT.TX.IMP.RENAL FXN,LAC-REDUC (Nepro) 237 ML VANILLA PO SCH (08:39)
[2018-07-12] MEDS: insulin Lispro (HumaLOG) vial - multi-dose SQ SCH ×3 (08:50→20:04)
[2018-07-12 15:00] VITALS: BP 148/52
[2018-07-12 18:00] VITALS: BP 168/57
[2018-07-12] MEDS: acetaminophen 325mg tablet PO PRN (20:12)
[2018-07-12] MEDS: insulin glargine (Lantus) pen - multi-dose SQ SCH (21:00)
[2018-07-12 22:00] VITALS: BP 147/38
[2018-07-13 02:00] VITALS: BP 162/62
[2018-07-13 05:28] LABS: BASOPHILS # (AUTO) 0.1 X10'3 (0-0.2); BASOPHILS % (AUTO) 0.7 % (0-1); EOSINOPHILS # (AUTO) 0.2 X10'3 (0-0.9); EOSINOPHILS % (AUTO) 2.8 % (0-6); HEMATOCRIT 30.6 % (35.0-45.0); HEMOGLOBIN 10.1 g/dl (12.0-16.0); LYMPHOCYTES # (AUTO) 1.9 X10'3 (1.1-4.8); LYMPHOCYTES % (AUTO) 23.9 % (21-51); MEAN CORPUSCULAR HEMOGLOBIN 29.3 PG (27.0-31.0); MEAN CORPUSCULAR VOLUME 88.8 FL (78-98); MEAN PLATELET VOLUME 11.9 FL (7.4-10.4); MONOCYTES # (AUTO) 0.7 X10'3 (0-0.9); MONOCYTES % (AUTO) 8.4 % (2-12); NEUTROPHILS % (AUTO) 64.2 % (42-75); PLATELET COUNT 224 X10'3 (140-440); RED BLOOD COUNT 3.44 X10'6 (4.20-5.60); RED CELL DISTRIBUTION WIDTH 15.4 % (11.5-14.5); WHITE BLOOD COUNT 7.8 X10'3 (4.5-11.0)
[2018-07-13 05:57] LABS: ALANINE AMINOTRANSFERASE 34 U/L (12-78); ALBUMIN/GLOBULIN RATIO 0.5 (1.1-1.5); ALKALINE PHOSPHATASE 62 IU/L (46-116); ANION GAP 9 (8-16); ASPARTATE AMINO TRANSFERASE 21 U/L (10-37); BILIRUBIN,TOTAL 0.2 MG/DL (0.1-1.0); BLOOD UREA NITROGEN 52 MG/DL (7-18); BUN/CREATININE RATIO 26.1 (6.6-38.0); CALCIUM 7.5 MG/DL (8.5-10.1); CHLORIDE 104 MMOL/L (99-107); CREATININE 1.99 MG/DL (0.40-0.90); GLUCOSE 165 MG/DL (70-104); MAGNESIUM 1.2 MG/DL (1.5-2.4); PHOSPHORUS 3.6 MG/DL (2.3-4.5); POTASSIUM 3.1 MMOL/L (3.5-5.1); SODIUM 143 MMOL/L (135-145); TOTAL CARBON DIOXIDE 29.9 MMOL/L (24-32); TOTAL PROTEIN 5.8 G/DL (6.4-8.2); eGFR 25 ML/MIN
[2018-07-13 06:00] VITALS: BP 161/50
[2018-07-13] MEDS ORDERED: potassium Cl 20 mEq SR tablet PO PRN (07:35)
[2018-07-13] MEDS ORDERED: potassium Cl 40MEQ/NS 500ml 500 ML IV PRN ×2 (07:35)
[2018-07-13] MEDS: multivitamins, therapeutics tablet PO SCH (08:28)
[2018-07-13] MEDS: docusate sod 100mg capsule PO SCH ×2 (08:28→19:52)
[2018-07-13] MEDS: levoTHYROXINE 100mcg tablet PO SCH (08:28)
[2018-07-13] MEDS: aspirin 81mg tab.chew PO SCH (08:29)
[2018-07-13] MEDS: amLODIPine 5mg tablet PO SCH (08:29)
[2018-07-13] MEDS: metoprolol tartrate 25mg tablet PO SCH ×2 (08:29→19:52)
[2018-07-13] MEDS: pantoprazole 40mg Tablet.DR PO SCH (08:29)
[2018-07-13] MEDS: potassium Cl 20 mEq SR tablet PO PRN ×3 (08:29→19:52)
[2018-07-13] MEDS: lactobacillus rhamnosus 10,000 MMU CELLS/CAPSULE PO SCH ×2 (08:29→19:52)
[2018-07-13] MEDS: heparin, porcine 5000 units/ml vial SQ SCH ×2 (08:30→19:53)
[2018-07-13] MEDS: insulin Lispro (HumaLOG) vial - multi-dose SQ SCH ×3 (08:41→19:50)
[2018-07-13 11:00] VITALS: BP 140/44
[2018-07-13 15:00] VITALS: BP 142/45
[2018-07-13 19:00] VITALS: BP 144/42
[2018-07-13] MEDS: insulin glargine (Lantus) pen - multi-dose SQ SCH (21:55)
[2018-07-13 23:00] VITALS: BP 165/48
[2018-07-14 03:00] VITALS: BP 179/65
[2018-07-14 06:00] VITALS: BP 164/48
[2018-07-14 07:33] LABS: BASOPHILS % (AUTO) 0.3 % (0-1); EOSINOPHILS # (AUTO) 0.3 X10'3 (0-0.9); EOSINOPHILS % (AUTO) 3.3 % (0-6); HEMATOCRIT 31.1 % (35.0-45.0); HEMOGLOBIN 10.1 g/dl (12.0-16.0); LYMPHOCYTES # (AUTO) 2.1 X10'3 (1.1-4.8); LYMPHOCYTES % (AUTO) 24.1 % (21-51); MEAN CORPUSCULAR HEMOGLOBIN 29.3 PG (27.0-31.0); MEAN CORPUSCULAR HGB CONC 32.6 % (33.0-36.5); MEAN CORPUSCULAR VOLUME 89.8 FL (78-98); MEAN PLATELET VOLUME 10.1 FL (7.4-10.4); MONOCYTES # (AUTO) 0.6 X10'3 (0-0.9); MONOCYTES % (AUTO) 7.4 % (2-12); NEUTROPHILS # (AUTO) 5.5 X10'3 (1.8-7.7); NEUTROPHILS % (AUTO) 64.9 % (42-75); PLATELET COUNT 247 X10'3 (140-440); RED BLOOD COUNT 3.47 X10'6 (4.20-5.60); RED CELL DISTRIBUTION WIDTH 15.4 % (11.5-14.5); WHITE BLOOD COUNT 8.5 X10'3 (4.5-11.0)
[2018-07-14 07:55] LABS: ALANINE AMINOTRANSFERASE 33 U/L (12-78); ALBUMIN 2.2 G/DL (3.4-5.0); ALBUMIN/GLOBULIN RATIO 0.6 (1.1-1.5); ALKALINE PHOSPHATASE 64 IU/L (46-116); ANION GAP 10 (8-16); ASPARTATE AMINO TRANSFERASE 25 U/L (10-37); BILIRUBIN,TOTAL 0.3 MG/DL (0.1-1.0); BLOOD UREA NITROGEN 33 MG/DL (7-18); BUN/CREATININE RATIO 21.2 (6.6-38.0); CALCIUM 8.3 MG/DL (8.5-10.1); CHLORIDE 106 MMOL/L (99-107); CREATININE 1.56 MG/DL (0.40-0.90); GLUCOSE 123 MG/DL (70-104); MAGNESIUM 1.2 MG/DL (1.5-2.4); PHOSPHORUS 3.7 MG/DL (2.3-4.5); POTASSIUM 3.3 MMOL/L (3.5-5.1); SODIUM 147 MMOL/L (135-145); TOTAL CARBON DIOXIDE 30.8 MMOL/L (24-32); TOTAL PROTEIN 6.1 G/DL (6.4-8.2); eGFR 33 ML/MIN
[2018-07-14] MEDS: pantoprazole 40mg Tablet.DR PO SCH (08:44)
[2018-07-14] MEDS: lactobacillus rhamnosus 10,000 MMU CELLS/CAPSULE PO SCH (08:44)
[2018-07-14] MEDS: multivitamins, therapeutics tablet PO SCH (08:44)
[2018-07-14] MEDS: levoTHYROXINE 100mcg tablet PO SCH (08:45)
[2018-07-14] MEDS: heparin, porcine 5000 units/ml vial SQ SCH (08:45)
[2018-07-14] MEDS: metoprolol tartrate 25mg tablet PO SCH (08:45)
[2018-07-14] MEDS: aspirin 81mg tab.chew PO SCH (08:45)
[2018-07-14] MEDS: docusate sod 100mg capsule PO SCH (08:45)
[2018-07-14] MEDS: amLODIPine 5mg tablet PO SCH (08:45)
[2018-07-14] MEDS: insulin Lispro (HumaLOG) vial - multi-dose SQ SCH ×2 (08:55→13:14)
[2018-07-14 11:00] VITALS: BP 179/49
[2018-07-14] MEDS ORDERED: INSU100V11 SQ (12:45)
[2018-07-14] MEDS ORDERED: HEPA500017 SQ (12:45)
[2018-07-14] MEDS ORDERED: LANTUS SQ (12:45)
[2018-07-14 15:00] VITALS: BP 157/49
== END 2018-07-14 15:55 | DRG 673 ==
LOC: ER 18:00 → ICU 2S 21:28 → PCU 3S 07-05 10:45
PROVIDERS: ADMIT Internal Medicine Critical Care Medicine; ATTEND Internal Medicine Critical Care Medicine
PROC: 06HM33Z Insertion of Infusion Device into Right Femoral Vein, Percutaneous Approach (ICD-10-PCS; principal; 2018-07-04)
PROC: 5A1D70Z Performance of Urinary Filtration, Intermittent, Less than 6 Hours Per Day (ICD-10-PCS; 2018-07-04)
PROC: 0JH63XZ Insertion of Tunneled Vascular Access Device into Chest Subcutaneous Tissue and Fascia, Percutaneous Approach (ICD-10-PCS; 2018-07-06)
PROC: 02HV33Z Insertion of Infusion Device into Superior Vena Cava, Percutaneous Approach (ICD-10-PCS; 2018-07-06)
PROC: B518ZZA Fluoroscopy of Superior Vena Cava, Guidance (ICD-10-PCS; 2018-07-06)
PROC: 5A1D70Z Performance of Urinary Filtration, Intermittent, Less than 6 Hours Per Day (ICD-10-PCS; 2018-07-06)
PROC: 0JPTXXZ Removal of Tunneled Vascular Access Device from Trunk Subcutaneous Tissue and Fascia, External Approach (ICD-10-PCS; 2018-07-11)
PROC: 02PYX3Z Removal of Infusion Device from Great Vessel, External Approach (ICD-10-PCS; 2018-07-11)
DX: N17.0 Acute kidney failure with tubular necrosis (principal); G92 Toxic encephalopathy; E87.2 Acidosis; M62.82 Rhabdomyolysis; E87.5 Hyperkalemia; I48.91 Unspecified atrial fibrillation; I25.10 Atherosclerotic heart disease of native coronary artery without angina pectoris; I10 Essential (primary) hypertension; E78.00 Pure hypercholesterolemia, unspecified; E11.9 Type 2 diabetes mellitus without complications; T38.3X5A Adverse effect of insulin and oral hypoglycemic [antidiabetic] drugs, initial encounter; M54.9 Dorsalgia, unspecified; H91.90 Unspecified hearing loss, unspecified ear; G89.29 Other chronic pain; Z95.1 Presence of aortocoronary bypass graft; I25.2 Old myocardial infarction; Z79.84 Long term (current) use of oral hypoglycemic drugs; Z86.73 Personal history of transient ischemic attack (TIA), and cerebral infarction without residual deficits; Y92.89 Other specified places as the place of occurrence of the external cause
CPT/HCPCS: 36415; 36558; 36590; 36600; 71045; 71250; 74176; 76775; 76937; 77001; 80048; 80053; 80202; 81001; 82272; 82803; 82948; 83036; 83605; 83735; 83874; 84100; 84145; 84443; 84484; 85018; 85025; 85610; 85730; 86705; 86706; 86803; 87040; 87070; 87340; 93005; 96361; 96365; 96367; 96375; 97110; 97116; 97162; 97530; 97535; 99152; 99153; 99291; A9270; C1750; C1894; G0257; G0378; J0360; J0696; J1644; J1815; J2001; J2150; J2250; J2405; J2543; J3010; J3370; J7030

== ENCOUNTER 2018-09-10 19:07 | Emergency (ER) | payer MEDICARE, OTHER ==
[~2018-09-10] VITALS: Ht 172.7 cm; Wt 72.7 kg
[~2018-09-10 19:07] MED LIST changes: +HEPA500017 SQ; +INSU100V11 SQ; +LANTUS SQ; -METF1000 PO
[2018-09-10] MEDS ORDERED: normal saline 1000ML IV soln IVB ONE (20:25)
[2018-09-10 20:57] LABS: BASOPHILS % (AUTO) 0.5 % (0-1); EOSINOPHILS # (AUTO) 0.3 X10'3 (0-0.9); EOSINOPHILS % (AUTO) 3.6 % (0-6); HEMATOCRIT 36.5 % (35.0-45.0); HEMOGLOBIN 12.1 g/dl (12.0-16.0); MEAN CORPUSCULAR HEMOGLOBIN 30.2 PG (27.0-31.0); MEAN CORPUSCULAR VOLUME 91.3 FL (78-98); MEAN PLATELET VOLUME 9.8 FL (7.4-10.4); MONOCYTES # (AUTO) 0.5 X10'3 (0-0.9); MONOCYTES % (AUTO) 7.1 % (2-12); NEUTROPHILS # (AUTO) 4.6 X10'3 (1.8-7.7); NEUTROPHILS % (AUTO) 61.8 % (42-75); PLATELET COUNT 353 X10'3 (140-440); RED CELL DISTRIBUTION WIDTH 15.5 % (11.5-14.5); WHITE BLOOD COUNT 7.5 X10'3 (4.5-11.0)
[2018-09-10 21:08] LABS: ALANINE AMINOTRANSFERASE 25 U/L (12-78); ALBUMIN 3.2 G/DL (3.4-5.0); ALBUMIN/GLOBULIN RATIO 0.8 (1.1-1.5); ALKALINE PHOSPHATASE 80 IU/L (46-116); ANION GAP 12 (8-16); ASPARTATE AMINO TRANSFERASE 19 U/L (10-37); BILIRUBIN,TOTAL 0.3 MG/DL (0.1-1.0); BLOOD UREA NITROGEN 35 MG/DL (7-18); BUN/CREATININE RATIO 26.1 (6.6-38.0); CALCIUM 8.5 MG/DL (8.5-10.1); CHLORIDE 103 MMOL/L (99-107); CREATININE 1.34 MG/DL (0.40-0.90); GLUCOSE 256 MG/DL (70-104); POTASSIUM 3.5 MMOL/L (3.5-5.1); SODIUM 144 MMOL/L (135-145); TOTAL CARBON DIOXIDE 29.5 MMOL/L (24-32); TOTAL PROTEIN 7.3 G/DL (6.4-8.2); eGFR 39 ML/MIN
[2018-09-10 22:33] VITALS: BP 156/59
[2018-09-10 23:10] LABS: CLARITY,URINE CLEAR (Clear); COLOR,URINE YELLOW (Yellow); GLUCOSE, URINE NEGATIVE (Neg); KETONES,URINE NEGATIVE (Neg); LEUKOCYTE ESTERASE ,URINE NEGATIVE (Neg); NITRITES, URINE NEGATIVE (Neg); OCCULT BLOOD,URINE NEGATIVE (Neg); PROTEIN,URINE NEGATIVE (Neg); UROBILINOGEN,URINE 0.2 E.U/dL (0.2-1.0)
[2018-09-10 23:11] LABS: UA COLLECTION TYPE CLN CATCH MIDSTREAM
== END 2018-09-10 23:23 | disposition home or self-care (01) ==
LOC: ER 19:08
DX: E11.65 Type 2 diabetes mellitus with hyperglycemia (principal); I12.9 Hypertensive chronic kidney disease with stage 1 through stage 4 chronic kidney disease, or unspecified chronic kidney disease; E11.22 Type 2 diabetes mellitus with diabetic chronic kidney disease; N18.9 Chronic kidney disease, unspecified; I48.91 Unspecified atrial fibrillation; I25.10 Atherosclerotic heart disease of native coronary artery without angina pectoris; E78.00 Pure hypercholesterolemia, unspecified; I25.2 Old myocardial infarction; G89.29 Other chronic pain; Z86.73 Personal history of transient ischemic attack (TIA), and cerebral infarction without residual deficits; Z79.82 Long term (current) use of aspirin; Z79.4 Long term (current) use of insulin; Z79.899 Other long term (current) drug therapy
CPT/HCPCS: 36415; 80053; 81003; 82948; 84484; 85025; 93005; 96360; 96361; 99284; J7030

== ENCOUNTER 2018-10-29 21:13 | Inpatient (IN) | payer MEDICARE, OTHER | END 2018-11-02 16:40 | disposition home or self-care (01) | LOC: ER 21:13 → ORTHO 4S 10-30 06:36 → ED HOLD 22:53 | DX: A41.9 Sepsis, unspecified organism (principal); J69.0 Pneumonitis due to inhalation of food and vomit; J18.9 Pneumonia, unspecified organism ==

== ENCOUNTER 2018-11-05 08:30 | Emergency (ER) | payer MEDICARE, OTHER ==
[~2018-11-05] VITALS: Ht 152.4 cm; Wt 78.6 kg
[~2018-11-05 08:30] MED LIST changes: -AMLO10TA28 PO; +AMLO2.5T2 PO; +BENA40TA73 PO; +FURO-150 PO; +GLIM1TAB46 PO; -GLIM2TAB2 PO; -HEPA500017 SQ; -HYDR-4353 PO; -INSU100V11 SQ; +INSU100V30 SQ; -LANTUS SQ; +LEVO750T21 PO; -PANT40TA4 PO
--- NOTE | 2018-11-05 08:35 | NUR ---
BIB BY EMS WITH FALL ON ROAD. TOLD EMS THAT SHE IS "LOOKING FOR HER ". BG 129. SINUS ON MONITOR. UNRELIABLE TO GIVE HX AND APPEARS CONFUSED.
[2018-11-05] MEDS ORDERED: normal saline 1000ML IV soln IVB ONE (08:40)
[2018-11-05 09:21] LABS: BASOPHILS % (AUTO) 0.4 % (0-1); EOSINOPHILS # (AUTO) 0.4 X10'3 (0-0.9); EOSINOPHILS % (AUTO) 5.1 % (0-6); HEMATOCRIT 31.1 % (35.0-45.0); HEMOGLOBIN 10.6 g/dl (12.0-16.0); LYMPHOCYTES # (AUTO) 1.3 X10'3 (1.1-4.8); LYMPHOCYTES % (AUTO) 15.2 % (21-51); MEAN CORPUSCULAR HEMOGLOBIN 31.6 PG (27.0-31.0); MEAN CORPUSCULAR VOLUME 92.9 FL (78-98); MEAN PLATELET VOLUME 8.7 FL (7.4-10.4); MONOCYTES # (AUTO) 0.7 X10'3 (0-0.9); MONOCYTES % (AUTO) 8.2 % (2-12); NEUTROPHILS # (AUTO) 6.1 X10'3 (1.8-7.7); NEUTROPHILS % (AUTO) 71.1 % (42-75); PLATELET COUNT 341 X10'3 (140-440); RED BLOOD COUNT 3.35 X10'6 (4.20-5.60); RED CELL DISTRIBUTION WIDTH 12.9 % (11.5-14.5); WHITE BLOOD COUNT 8.5 X10'3 (4.5-11.0)
[2018-11-05 09:28] LABS: INR 1.1 INR; PARTIAL THROMBOPLASTIN TIME 29 SECONDS (22-32); PROTHROMBIN TIME 11.5 SECONDS (9.0-12.0)
[2018-11-05 09:32] LABS: ALANINE AMINOTRANSFERASE 26 U/L (12-78); ALBUMIN 2.6 G/DL (3.4-5.0); ALBUMIN/GLOBULIN RATIO 0.7 (1.1-1.5); ALKALINE PHOSPHATASE 76 IU/L (46-116); ANION GAP 9 (8-16); ASPARTATE AMINO TRANSFERASE 15 U/L (10-37); BILIRUBIN,TOTAL 0.3 MG/DL (0.1-1.0); BLOOD UREA NITROGEN 31 MG/DL (7-18); BUN/CREATININE RATIO 21.5 (6.6-38.0); CALCIUM 8.3 MG/DL (8.5-10.1); CHLORIDE 104 MMOL/L (99-107); CREATININE 1.44 MG/DL (0.40-0.90); ETHANOL < 0.010 GM/DL (0.0-0.010); GLUCOSE 125 MG/DL (70-104); POTASSIUM 3.7 MMOL/L (3.5-5.1); SODIUM 142 MMOL/L (135-145); TOTAL CARBON DIOXIDE 29.3 MMOL/L (24-32); TOTAL PROTEIN 6.4 G/DL (6.4-8.2); TROPONIN I < 0.04 NG/ML (0.0-0.05); eGFR 36 ML/MIN
--- NOTE | 2018-11-05 10:15 | NUR ---
CALLED THE PT'S JAZMÍN AND LEFT A MESSAGE ASKING HIM TO CALL [facility].
[2018-11-05 10:31] LABS: CLARITY,URINE CLEAR (Clear); COLOR,URINE YELLOW (Yellow); GLUCOSE, URINE NEGATIVE (Neg); KETONES,URINE NEGATIVE (Neg); LEUKOCYTE ESTERASE ,URINE NEGATIVE (Neg); NITRITES, URINE NEGATIVE (Neg); OCCULT BLOOD,URINE NEGATIVE (Neg); PH,URINE 5.5 (4.8-8.0); PROTEIN,URINE NEGATIVE (Neg); UROBILINOGEN,URINE 0.2 E.U/dL (0.2-1.0)
[2018-11-05 10:36] LABS: UA COLLECTION TYPE STRAIGHT CATH
[2018-11-05 10:51] LABS: URINE AMPHETAMINE SCREEN NEGATIVE (Neg); URINE BARBITUATE SCREEN NEGATIVE (Neg); URINE BENZODIAZEPINES SCREEN POSITIVE (Neg); URINE CANNABINOID SCREEN NEGATIVE (Neg); URINE COCAINE SCREEN NEGATIVE (Neg); URINE METHADONE SCREEN NEGATIVE (Neg); URINE OPIATE SCREEN POSITIVE (Neg); URINE PHENCYCLIDINE SCREEN NEGATIVE (Neg)
[2018-11-05 12:22] VITALS: BP 153/68
== END 2018-11-05 12:23 | disposition home or self-care (01) ==
LOC: ER 08:31
DX: S09.90XA Unspecified injury of head, initial encounter (principal); M25.552 Pain in left hip; M54.2 Cervicalgia; M54.9 Dorsalgia, unspecified; I48.91 Unspecified atrial fibrillation; I25.10 Atherosclerotic heart disease of native coronary artery without angina pectoris; E78.00 Pure hypercholesterolemia, unspecified; I10 Essential (primary) hypertension; I25.2 Old myocardial infarction; G89.29 Other chronic pain; Z86.73 Personal history of transient ischemic attack (TIA), and cerebral infarction without residual deficits; E11.9 Type 2 diabetes mellitus without complications; Z79.82 Long term (current) use of aspirin; Z79.4 Long term (current) use of insulin; Z79.899 Other long term (current) drug therapy; W18.39XA Other fall on same level, initial encounter; Y93.01 Activity, walking, marching and hiking; Y92.89 Other specified places as the place of occurrence of the external cause; Y99.8 Other external cause status
CPT/HCPCS: 36415; 70450; 71045; 72100; 72125; 72170; 80053; 80305; 80320; 81003; 82140; 82948; 84484; 85025; 85610; 85730; 93005; 99284; J7030; P9612

== ENCOUNTER 2018-11-20 14:53 | Inpatient (IN) | payer MEDICARE, OTHER ==
[~2018-11-20] VITALS: Ht 152.4 cm; Wt 76.4 kg
[2018-11-20] MEDS ORDERED: normal saline 1000ML IV soln IVB ONE (15:00)
--- NOTE | 2018-11-20 15:06 | NUR ---
bg 184
[2018-11-20 15:17] LABS: BASOPHILS # (AUTO) 0.1 X10'3 (0-0.2); BASOPHILS % (AUTO) 0.6 % (0-1); EOSINOPHILS # (AUTO) 0.1 X10'3 (0-0.9); EOSINOPHILS % (AUTO) 0.4 % (0-6); HEMATOCRIT 40.1 % (35.0-45.0); HEMOGLOBIN 13.3 g/dl (12.0-16.0); LYMPHOCYTES # (AUTO) 0.7 X10'3 (1.1-4.8); LYMPHOCYTES % (AUTO) 3.3 % (21-51); MEAN CORPUSCULAR HEMOGLOBIN 29.8 PG (27.0-31.0); MEAN CORPUSCULAR HGB CONC 33.1 g/dL (33.0-36.5); MEAN PLATELET VOLUME 9.6 FL (7.4-10.4); MONOCYTES # (AUTO) 1.3 X10'3 (0-0.9); MONOCYTES % (AUTO) 5.7 % (2-12); NEUTROPHILS # (AUTO) 20.5 X10'3 (1.8-7.7); PLATELET COUNT 349 X10'3 (140-440); RED BLOOD COUNT 4.45 X10'6 (4.20-5.60); RED CELL DISTRIBUTION WIDTH 14.1 % (11.5-14.5); WHITE BLOOD COUNT 22.8 X10'3 (4.5-11.0)
[2018-11-20 15:29] LABS: INR 1.1 INR; PROTHROMBIN TIME 10.7 SECONDS (9.0-12.0)
[2018-11-20 15:30] LABS: ALANINE AMINOTRANSFERASE 29 U/L (12-78); ALBUMIN 3.4 G/DL (3.4-5.0); ALBUMIN/GLOBULIN RATIO 0.8 (1.1-1.5); ALKALINE PHOSPHATASE 103 IU/L (46-116); ANION GAP 11 (8-16); ASPARTATE AMINO TRANSFERASE 24 U/L (10-37); BILIRUBIN,TOTAL 0.6 MG/DL (0.1-1.0); BLOOD UREA NITROGEN 64 MG/DL (7-18); BUN/CREATININE RATIO 22.9 (6.6-38.0); CALCIUM 9.3 MG/DL (8.5-10.1); CHLORIDE 99 MMOL/L (99-107); CREATININE 2.79 MG/DL (0.40-0.90); GLUCOSE 199 MG/DL (70-104); POTASSIUM 4.6 MMOL/L (3.5-5.1); SODIUM 139 MMOL/L (135-145); TOTAL PROTEIN 7.9 G/DL (6.4-8.2); eGFR 17 ML/MIN
--- NOTE | 2018-11-20 15:32 | NUR ---
back from ct scan in stable condition
[2018-11-20 15:34] LABS: TROPONIN I < 0.04 NG/ML (0.0-0.05)
--- NOTE | 2018-11-20 15:34 | NUR ---
XRAY IN PROGRESS
[2018-11-20] MEDS ORDERED: aspirin 81mg tab.chew PO ONE (15:40)
[2018-11-20 16:03] LABS: TOTAL CELLS COUNTED 100
[2018-11-20 16:04] LABS: PLATELET ESTIMATE NORMAL
[2018-11-20 17:19] LABS: CLARITY,URINE CLEAR (Clear); COLOR,URINE YELLOW (Yellow); GLUCOSE, URINE NEGATIVE (Neg); KETONES,URINE NEGATIVE (Neg); LEUKOCYTE ESTERASE ,URINE NEGATIVE (Neg); NITRITES, URINE NEGATIVE (Neg); OCCULT BLOOD,URINE NEGATIVE (Neg); PROTEIN,URINE NEGATIVE (Neg); UROBILINOGEN,URINE 0.2 E.U/dL (0.2-1.0)
[2018-11-20 17:21] LABS: UA COLLECTION TYPE FOLEY CATH
[2018-11-20] MEDS ORDERED: INSU100V9 SQ (17:23)
[2018-11-20] MEDS ORDERED: HYDR12.5 PO (17:25)
[2018-11-20] MEDS ORDERED: OLAN10TA19 PO (17:25)
[2018-11-20] MEDS ORDERED: FURO-150 PO (17:27)
[2018-11-20] MEDS ORDERED: aspirin 300mg supp.rect RC ONE (17:30)
[2018-11-20] MEDS ORDERED: magnesium hydroxide 30ml (MOM) UD suspension PO PRN (18:00)
[2018-11-20] MEDS ORDERED: potassium Cl 20 mEq SR tablet PO PRN ×2 (18:00)
[2018-11-20] MEDS ORDERED: bisacodyl 10mg suppository rectal RC PRN (18:00)
[2018-11-20] MEDS ORDERED: mag hydrox/Alum hydrox/simeth 30ml oral suspension PO PRN (18:00)
[2018-11-20] MEDS ORDERED: magnesium Cl slow-release 64mg tablet PO PRN (18:00)
[2018-11-20] MEDS ORDERED: potassium Cl 40MEQ/NS 500ml 500 ML IV PRN ×2 (18:00)
[2018-11-20] MEDS ORDERED: ondansetron/PF 4mg/2ml inj IV PRN (18:00)
[2018-11-20] MEDS ORDERED: magnesium 4gm in 100ml NS 100 ML IV PRN (18:00)
[2018-11-20] MEDS: CefTRIAXone/D5W-Rocephin 1gm 50 ML IV SCH (18:00)
[2018-11-20] MEDS ORDERED: magnesium 2GM in 50ml NS 50 ML IV PRN (18:00)
[2018-11-20] MEDS ORDERED: MESSAGE TO PHARMACY PO ONE (18:05)
[2018-11-20] MEDS ORDERED: glucagon, human recombinant 1mg kit SUBCUT PRN (18:05)
[2018-11-20] MEDS ORDERED: dextrose 50%-water 50ml dispensing syringe IV PRN ×2 (18:05)
[2018-11-20] MEDS ORDERED: dextrose ORAL solution 15 GM/59 ML bottle PO PRN ×2 (18:05)
--- NOTE | 2018-11-20 18:34 | NUR ---
HEMOGLOBIN AC1 7.4 DRAWN HERE ON OCTOBER 29, 2018
[2018-11-20] MEDS: sodium chloride 0.45% 1,000 ML IV SCH (19:07)
[2018-11-20] MEDS: docusate sod 100mg capsule PO SCH (20:09)
[2018-11-20] MEDS: atorvastatin 10mg tablet PO SCH (20:10)
[2018-11-20] MEDS: heparin, porcine 5000 units/ml vial SQ SCH (20:10)
[2018-11-20] MEDS: metoprolol tartrate 25mg tablet PO SCH (20:10)
--- NOTE | 2018-11-20 20:17 | NUR ---
family just went home
[2018-11-20] MEDS: insulin glargine (Lantus) pen - multi-dose SQ SCH (21:00)
--- NOTE | 2018-11-20 22:01 | NUR ---
BG 123
[2018-11-20] MEDS: acetaminophen 325mg tablet PO PRN (22:02)
--- NOTE | 2018-11-20 22:07 | NUR ---
non admin lantus r/t pt not eating and glucose 123
[2018-11-20 22:45] VITALS: BP 121/38
--- NOTE | 2018-11-20 23:09 | NUR ---
REC'D REPORT FROM TK CROSS IN ER. PT ARRIVAL UP TO FLOOR VIA GURNEY AND ONE ATTENDANT. TRANSFERRED TO BED VIA SLIDE BOARD AND THREE RN.S PT IS VERY CONFUSED AND NON VERBAL EXCEPT TO SAY "I'M COLD." PT IS [place], HAS ONE R SIDE HEARING AIDE IN EAR, PLACED IN CONTAINER AT BEDSIDE. 2 RN SKIN CHECK REVEALS NO SKIN ISSUES. VS WNL. TELE 19 APPLIED. ACCUCHECK 133. NEURO CHECK PERFORMED.
[2018-11-21 02:00] VITALS: BP 118/41
[2018-11-21 06:00] VITALS: BP 135/88
--- NOTE | 2018-11-21 06:10 | NUR ---
received report from claudia english
[2018-11-21 06:35] LABS: BASOPHILS # (AUTO) 0.2 X10'3 (0-0.2); BASOPHILS % (AUTO) 1.1 % (0-1); EOSINOPHILS # (AUTO) 0.3 X10'3 (0-0.9); EOSINOPHILS % (AUTO) 1.6 % (0-6); HEMATOCRIT 34.3 % (35.0-45.0); HEMOGLOBIN 11.1 g/dl (12.0-16.0); LYMPHOCYTES # (AUTO) 2.2 X10'3 (1.1-4.8); LYMPHOCYTES % (AUTO) 10.6 % (21-51); MEAN CORPUSCULAR HEMOGLOBIN 29.3 PG (27.0-31.0); MEAN CORPUSCULAR HGB CONC 32.4 g/dL (33.0-36.5); MEAN CORPUSCULAR VOLUME 90.5 FL (78-98); MONOCYTES # (AUTO) 1.9 X10'3 (0-0.9); MONOCYTES % (AUTO) 9.2 % (2-12); NEUTROPHILS # (AUTO) 16.1 X10'3 (1.8-7.7); NEUTROPHILS % (AUTO) 77.5 % (42-75); PLATELET COUNT 259 X10'3 (140-440); RED BLOOD COUNT 3.79 X10'6 (4.20-5.60); RED CELL DISTRIBUTION WIDTH 13.9 % (11.5-14.5); WHITE BLOOD COUNT 20.8 X10'3 (4.5-11.0)
--- NOTE | 2018-11-21 06:39 | NUR ---
REPORT GIVEN TO TK WATT.
[2018-11-21 06:44] LABS: ALANINE AMINOTRANSFERASE 15 U/L (12-78); ALBUMIN 2.5 G/DL (3.4-5.0); ALBUMIN/GLOBULIN RATIO 0.7 (1.1-1.5); ALKALINE PHOSPHATASE 81 IU/L (46-116); ANION GAP 9 (8-16); ASPARTATE AMINO TRANSFERASE 16 U/L (10-37); BILIRUBIN,TOTAL 0.6 MG/DL (0.1-1.0); BLOOD UREA NITROGEN 54 MG/DL (7-18); BUN/CREATININE RATIO 28.3 (6.6-38.0); CALCIUM 8.6 MG/DL (8.5-10.1); CHLORIDE 104 MMOL/L (99-107); CHOL/HDL RATIO 3.7 (0.00-4.99); CHOLESTEROL 116 MG/DL (0-200); CREATININE 1.91 MG/DL (0.40-0.90); GLUCOSE 108 MG/DL (70-104); HDL CHOLESTEROL 31 MG/DL (35-60); LDL CHOLESTEROL 66 MG/DL (50-100); MAGNESIUM 1.8 MG/DL (1.5-2.4); POTASSIUM 4.2 MMOL/L (3.5-5.1); SODIUM 140 MMOL/L (135-145); TOTAL CARBON DIOXIDE 27.3 MMOL/L (24-32); TOTAL PROTEIN 6.2 G/DL (6.4-8.2); TRIGLYCERIDES 147 MG/DL (20-135); eGFR 26 ML/MIN
[2018-11-21] MEDS: docusate sod 100mg capsule PO SCH ×2 (08:00→22:02)
[2018-11-21] MEDS: K and/or MAG REPLACEMENT MC SCH (08:00)
[2018-11-21] MEDS ORDERED: aspirin 81mg tablet.DR PO SCH (08:00)
[2018-11-21] MEDS ORDERED: non-formulary drug (Aspirin (Aspir 81) 1 TAB) PO SCH (08:00)
--- NOTE | 2018-11-21 08:49 | NUR ---
DM consult, patient has A1C of 7.4 however not appropriate for education at this time due to confusion. Will monitor for DM education when patient is able, defer for now. Will continue to follow per protocol. Addendum: 11/21/18 at [address] Amended: Links added.
[2018-11-21] MEDS: CefTRIAXone/D5W-Rocephin 1gm 50 ML IV SCH (09:09)
[2018-11-21] MEDS: aspirin 81mg tablet.DR PO SCH (09:13)
[2018-11-21] MEDS: olanzapine 10mg tablet PO SCH (09:16)
[2018-11-21] MEDS: metoprolol tartrate 25mg tablet PO SCH ×2 (09:18→22:03)
[2018-11-21] MEDS: amLODIPine 5mg tablet PO SCH (09:19)
[2018-11-21] MEDS: heparin, porcine 5000 units/ml vial SQ SCH ×2 (09:20→22:03)
[2018-11-21] MEDS: sodium chloride 0.45% 1,000 ML IV SCH ×2 (09:25→13:56)
[2018-11-21 10:00] VITALS: BP 130/50
[2018-11-21 18:00] VITALS: BP 145/54
--- NOTE | 2018-11-21 18:22 | NUR ---
gave report to jonathan dalal rn
[2018-11-21] MEDS: insulin glargine (Lantus) pen - multi-dose SQ SCH (21:00)
[2018-11-21] MEDS: lactobacillus rhamnosus 10,000 MMU CELLS/CAPSULE PO SCH (22:02)
[2018-11-21] MEDS: atorvastatin 10mg tablet PO SCH (22:03)
[2018-11-21 23:00] VITALS: BP 128/57
[2018-11-22] MEDS: sodium chloride 0.45% 1,000 ML IV SCH ×3 (01:46→23:17)
[2018-11-22 06:00] VITALS: BP 157/73
--- NOTE | 2018-11-22 07:00 | NUR ---
Patient resistive to care. Unable to obtain blood for labs, refusing meds & assessment. Threaten to strike.
[2018-11-22] MEDS: docusate sod 100mg capsule PO SCH ×2 (08:00→20:00)
[2018-11-22 10:00] VITALS: BP 146/58
[2018-11-22] MEDS: K and/or MAG REPLACEMENT MC SCH (10:40)
[2018-11-22] MEDS: heparin, porcine 5000 units/ml vial SQ SCH ×2 (10:40→20:48)
[2018-11-22] MEDS: olanzapine 10mg tablet PO SCH (10:40)
[2018-11-22] MEDS: lactobacillus rhamnosus 10,000 MMU CELLS/CAPSULE PO SCH ×3 (10:41→20:47)
[2018-11-22] MEDS: aspirin 81mg tablet.DR PO SCH (10:41)
[2018-11-22] MEDS: amLODIPine 5mg tablet PO SCH (10:41)
--- NOTE | 2018-11-22 10:45 | NUR ---
at bedside to assist staff with blood draw and admin. medications
[2018-11-22 10:46] LABS: BASOPHILS # (AUTO) 0.1 X10'3 (0-0.2); BASOPHILS % (AUTO) 0.5 % (0-1); EOSINOPHILS # (AUTO) 0.5 X10'3 (0-0.9); HEMATOCRIT 36.9 % (35.0-45.0); HEMOGLOBIN 11.7 g/dl (12.0-16.0); LYMPHOCYTES # (AUTO) 1.5 X10'3 (1.1-4.8); LYMPHOCYTES % (AUTO) 9.3 % (21-51); MEAN CORPUSCULAR HEMOGLOBIN 28.7 PG (27.0-31.0); MEAN CORPUSCULAR HGB CONC 31.7 g/dL (33.0-36.5); MEAN CORPUSCULAR VOLUME 90.6 FL (78-98); MONOCYTES # (AUTO) 1.2 X10'3 (0-0.9); MONOCYTES % (AUTO) 7.6 % (2-12); NEUTROPHILS # (AUTO) 12.9 X10'3 (1.8-7.7); NEUTROPHILS % (AUTO) 79.6 % (42-75); PLATELET COUNT 266 X10'3 (140-440); RED BLOOD COUNT 4.08 X10'6 (4.20-5.60); RED CELL DISTRIBUTION WIDTH 13.5 % (11.5-14.5); WHITE BLOOD COUNT 16.2 X10'3 (4.5-11.0)
[2018-11-22] MEDS: CefTRIAXone 2gm/D5W 50ml 50 ML IV SCH (10:48)
[2018-11-22] MEDS: metoprolol tartrate 25mg tablet PO SCH ×2 (10:52→20:48)
[2018-11-22 10:59] LABS: ALANINE AMINOTRANSFERASE 14 U/L (12-78); ALBUMIN 2.6 G/DL (3.4-5.0); ALBUMIN/GLOBULIN RATIO 0.6 (1.1-1.5); ALKALINE PHOSPHATASE 90 IU/L (46-116); ANION GAP 10 (8-16); ASPARTATE AMINO TRANSFERASE 14 U/L (10-37); BILIRUBIN,TOTAL 0.3 MG/DL (0.1-1.0); BLOOD UREA NITROGEN 35 MG/DL (7-18); BUN/CREATININE RATIO 26.1 (6.6-38.0); CALCIUM 8.6 MG/DL (8.5-10.1); CHLORIDE 104 MMOL/L (99-107); CREATININE 1.34 MG/DL (0.40-0.90); GLUCOSE 127 MG/DL (70-104); MAGNESIUM 1.7 MG/DL (1.5-2.4); POTASSIUM 4.1 MMOL/L (3.5-5.1); SODIUM 141 MMOL/L (135-145); TOTAL CARBON DIOXIDE 26.8 MMOL/L (24-32); TOTAL PROTEIN 6.7 G/DL (6.4-8.2); eGFR 39 ML/MIN
[2018-11-22] MEDS ORDERED: LORazepam 2 mg/ml vial IV ONE (13:25)
[2018-11-22] MEDS: vancomycin/NS 1 GM ADD-VANTAGE 250 ML IV SCH (16:19)
[2018-11-22 18:00] VITALS: BP 189/62
--- NOTE | 2018-11-22 18:48 | NUR ---
PATIENT REPORT RECEIVED FROM CURTIS FREY.
[2018-11-22] MEDS: atorvastatin 10mg tablet PO SCH (20:47)
[2018-11-22] MEDS: acetaminophen 325mg tablet PO PRN (20:51)
[2018-11-22] MEDS: insulin glargine (Lantus) pen - multi-dose SQ SCH (21:54)
[2018-11-22 22:00] VITALS: BP 127/52
[2018-11-23 06:10] VITALS: BP 169/58
--- NOTE | 2018-11-23 06:11 | NUR ---
PATIENT REPORT GIVEN TO RAYMUNDO FREY.
[2018-11-23 06:15] LABS: BASOPHILS # (AUTO) 0.1 X10'3 (0-0.2); BASOPHILS % (AUTO) 0.4 % (0-1); EOSINOPHILS # (AUTO) 0.2 X10'3 (0-0.9); EOSINOPHILS % (AUTO) 0.8 % (0-6); HEMATOCRIT 37.1 % (35.0-45.0); HEMOGLOBIN 12.1 g/dl (12.0-16.0); LYMPHOCYTES # (AUTO) 2.7 X10'3 (1.1-4.8); LYMPHOCYTES % (AUTO) 11.4 % (21-51); MEAN CORPUSCULAR HEMOGLOBIN 29.3 PG (27.0-31.0); MEAN CORPUSCULAR HGB CONC 32.6 g/dL (33.0-36.5); MEAN CORPUSCULAR VOLUME 89.8 FL (78-98); MEAN PLATELET VOLUME 10.2 FL (7.4-10.4); MONOCYTES # (AUTO) 2.5 X10'3 (0-0.9); MONOCYTES % (AUTO) 10.5 % (2-12); NEUTROPHILS # (AUTO) 18.4 X10'3 (1.8-7.7); NEUTROPHILS % (AUTO) 76.9 % (42-75); PLATELET COUNT 255 X10'3 (140-440); RED BLOOD COUNT 4.13 X10'6 (4.20-5.60); RED CELL DISTRIBUTION WIDTH 13.4 % (11.5-14.5)
[2018-11-23 06:23] LABS: ALANINE AMINOTRANSFERASE 10 U/L (12-78); ALBUMIN 2.4 G/DL (3.4-5.0); ALBUMIN/GLOBULIN RATIO 0.6 (1.1-1.5); ALKALINE PHOSPHATASE 95 IU/L (46-116); ANION GAP 12 (8-16); ASPARTATE AMINO TRANSFERASE 12 U/L (10-37); BILIRUBIN,TOTAL 0.4 MG/DL (0.1-1.0); BLOOD UREA NITROGEN 25 MG/DL (7-18); BUN/CREATININE RATIO 19.8 (6.6-38.0); CALCIUM 8.3 MG/DL (8.5-10.1); CHLORIDE 103 MMOL/L (99-107); CREATININE 1.26 MG/DL (0.40-0.90); GLUCOSE 137 MG/DL (70-104); MAGNESIUM 1.6 MG/DL (1.5-2.4); POTASSIUM 3.7 MMOL/L (3.5-5.1); SODIUM 139 MMOL/L (135-145); TOTAL CARBON DIOXIDE 23.8 MMOL/L (24-32); TOTAL PROTEIN 6.4 G/DL (6.4-8.2); eGFR 42 ML/MIN
--- NOTE | 2018-11-23 06:30 | NUR ---
I HAVE RECEIVED PATIENT REPORT FROM PEG Nichole
[2018-11-23 06:41] LABS: PLATELET ESTIMATE NORMAL; TOTAL CELLS COUNTED 100
[2018-11-23] MEDS: docusate sod 100mg capsule PO SCH ×2 (08:00→20:00)
[2018-11-23] MEDS: K and/or MAG REPLACEMENT MC SCH (08:00)
[2018-11-23 08:50] LABS: VANCOMYCIN,RANDOM 19.5 UG/ML
[2018-11-23] MEDS: metoprolol tartrate 25mg tablet PO SCH ×2 (08:53→20:43)
[2018-11-23] MEDS: olanzapine 10mg tablet PO SCH (08:54)
[2018-11-23] MEDS: aspirin 81mg tablet.DR PO SCH (08:58)
[2018-11-23] MEDS: amLODIPine 5mg tablet PO SCH (08:58)
[2018-11-23] MEDS: CefTRIAXone 2gm/D5W 50ml 50 ML IV SCH (08:58)
[2018-11-23] MEDS: heparin, porcine 5000 units/ml vial SQ SCH ×2 (09:06→20:43)
[2018-11-23 10:00] VITALS: BP 135/54
[2018-11-23] MEDS: insulin Lispro (HumaLOG) vial - multi-dose SQ SCH ×2 (10:08→14:06)
[2018-11-23] MEDS: metroNIDAZOLE-Flagyl 500mg/NS 100 ML IV SCH ×2 (10:11→16:36)
[2018-11-23] MEDS: sodium chloride 0.45% 1,000 ML IV SCH (11:45)
[2018-11-23] MEDS: vancomycin/NS 1 GM ADD-VANTAGE 250 ML IV SCH (13:54)
[2018-11-23 14:00] VITALS: BP 116/38
[2018-11-23 18:00] VITALS: BP 143/52
--- NOTE | 2018-11-23 18:17 | NUR ---
I gave patient report to Yeni Nichole RN
--- NOTE | 2018-11-23 18:18 | NUR ---
PATIENT REPORT RECEIVED FROM RAYMUNDO FREY.
[2018-11-23] MEDS: atorvastatin 10mg tablet PO SCH (20:43)
[2018-11-23] MEDS: lactobacillus rhamnosus 10,000 MMU CELLS/CAPSULE PO SCH (20:43)
[2018-11-23] MEDS: insulin glargine (Lantus) pen - multi-dose SQ SCH (21:32)
[2018-11-23 22:00] VITALS: BP 87/62
[2018-11-24] MEDS: metroNIDAZOLE-Flagyl 500mg/NS 100 ML IV SCH ×4 (00:07→23:39)
[2018-11-24] MEDS: sodium chloride 0.45% 1,000 ML IV SCH ×2 (04:38→19:01)
[2018-11-24 06:10] VITALS: BP 93/48
--- NOTE | 2018-11-24 06:30 | NUR ---
I have received patient report from Yeni Nichole RN
--- NOTE | 2018-11-24 06:31 | NUR ---
PATIENT REPORT GIVEN TO RAYMUNDO FREY.
[2018-11-24 06:37] LABS: BASOPHILS # (AUTO) 0.1 X10'3 (0-0.2); BASOPHILS % (AUTO) 0.4 % (0-1); EOSINOPHILS # (AUTO) 0.2 X10'3 (0-0.9); HEMATOCRIT 38.9 % (35.0-45.0); HEMOGLOBIN 12.7 g/dl (12.0-16.0); LYMPHOCYTES # (AUTO) 1.6 X10'3 (1.1-4.8); LYMPHOCYTES % (AUTO) 8.6 % (21-51); MEAN CORPUSCULAR HEMOGLOBIN 29.1 PG (27.0-31.0); MEAN CORPUSCULAR HGB CONC 32.8 g/dL (33.0-36.5); MEAN CORPUSCULAR VOLUME 88.9 FL (78-98); MEAN PLATELET VOLUME 10.2 FL (7.4-10.4); MONOCYTES # (AUTO) 1.9 X10'3 (0-0.9); MONOCYTES % (AUTO) 10.4 % (2-12); NEUTROPHILS # (AUTO) 14.6 X10'3 (1.8-7.7); NEUTROPHILS % (AUTO) 79.6 % (42-75); PLATELET COUNT 256 X10'3 (140-440); RED BLOOD COUNT 4.37 X10'6 (4.20-5.60); RED CELL DISTRIBUTION WIDTH 13.7 % (11.5-14.5); WHITE BLOOD COUNT 18.3 X10'3 (4.5-11.0)
[2018-11-24 06:47] LABS: ANION GAP 11 (8-16); BLOOD UREA NITROGEN 22 MG/DL (7-18); CHLORIDE 103 MMOL/L (99-107); CREATININE 1.26 MG/DL (0.40-0.90); GLUCOSE 144 MG/DL (70-104); POTASSIUM 3.5 MMOL/L (3.5-5.1); SODIUM 137 MMOL/L (135-145); TOTAL CARBON DIOXIDE 23.3 MMOL/L (24-32)
[2018-11-24 06:48] LABS: ALANINE AMINOTRANSFERASE 14 U/L (12-78); ALBUMIN 2.2 G/DL (3.4-5.0); ALBUMIN/GLOBULIN RATIO 0.6 (1.1-1.5); ALKALINE PHOSPHATASE 105 IU/L (46-116); ASPARTATE AMINO TRANSFERASE 14 U/L (10-37); BILIRUBIN,TOTAL 0.3 MG/DL (0.1-1.0); BUN/CREATININE RATIO 17.5 (6.6-38.0); CALCIUM 8.5 MG/DL (8.5-10.1); MAGNESIUM 1.6 MG/DL (1.5-2.4); TOTAL PROTEIN 6.2 G/DL (6.4-8.2); eGFR 42 ML/MIN
[2018-11-24] MEDS: docusate sod 100mg capsule PO SCH ×2 (08:00→19:57)
[2018-11-24] MEDS: K and/or MAG REPLACEMENT MC SCH (08:00)
[2018-11-24] MEDS: lactobacillus rhamnosus 10,000 MMU CELLS/CAPSULE PO SCH ×2 (09:11→19:55)
[2018-11-24] MEDS: amLODIPine 5mg tablet PO SCH (09:11)
[2018-11-24] MEDS: metoprolol tartrate 25mg tablet PO SCH ×2 (09:11→19:55)
[2018-11-24] MEDS: heparin, porcine 5000 units/ml vial SQ SCH ×2 (09:12→19:55)
[2018-11-24] MEDS: aspirin 81mg tablet.DR PO SCH (09:12)
[2018-11-24] MEDS: CefTRIAXone 2gm/D5W 50ml 50 ML IV SCH (09:12)
[2018-11-24] MEDS: insulin Lispro (HumaLOG) vial - multi-dose SQ SCH ×3 (09:23→19:00)
[2018-11-24 10:00] VITALS: BP 144/60
[2018-11-24] MEDS ORDERED: VANCOMYCIN LEVEL IV ONE (13:30)
[2018-11-24 18:00] VITALS: BP 159/112
--- NOTE | 2018-11-24 18:15 | NUR ---
Patient in room [facility]THO 4013A. I have received report from TK De La Paz and had the opportunity to ask questions and assume patient care.
--- NOTE | 2018-11-24 18:26 | NUR ---
I gave patient report to Yeni Smith RN
[2018-11-24] MEDS: atorvastatin 10mg tablet PO SCH (19:55)
[2018-11-24] MEDS: insulin glargine (Lantus) pen - multi-dose SQ SCH (21:01)
[2018-11-24 22:00] VITALS: BP 137/55
--- NOTE | 2018-11-25 06:11 | NUR ---
Problems reprioritized. Patient report given, questions answered & plan of care reviewed with TK De La Paz.
[2018-11-25 06:16] VITALS: BP 145/47
--- NOTE | 2018-11-25 06:16 | NUR ---
Patient in room [facility]TH[facility] 4013. I have received report from Yeni Smith RN and had the opportunity to ask questions and assume patient care.
[2018-11-25 06:50] LABS: BASOPHILS # (AUTO) 0.1 X10'3 (0-0.2); BASOPHILS % (AUTO) 0.3 % (0-1); EOSINOPHILS # (AUTO) 0.5 X10'3 (0-0.9); EOSINOPHILS % (AUTO) 2.8 % (0-6); HEMATOCRIT 34.9 % (35.0-45.0); HEMOGLOBIN 11.5 g/dl (12.0-16.0); LYMPHOCYTES # (AUTO) 2.2 X10'3 (1.1-4.8); LYMPHOCYTES % (AUTO) 13.1 % (21-51); MEAN CORPUSCULAR HEMOGLOBIN 29.3 PG (27.0-31.0); MEAN CORPUSCULAR HGB CONC 32.9 g/dL (33.0-36.5); MEAN CORPUSCULAR VOLUME 89.1 FL (78-98); MONOCYTES # (AUTO) 1.7 X10'3 (0-0.9); MONOCYTES % (AUTO) 9.8 % (2-12); NEUTROPHILS # (AUTO) 12.6 X10'3 (1.8-7.7); PLATELET COUNT 247 X10'3 (140-440); RED BLOOD COUNT 3.92 X10'6 (4.20-5.60); RED CELL DISTRIBUTION WIDTH 13.5 % (11.5-14.5)
[2018-11-25 07:04] LABS: ALANINE AMINOTRANSFERASE 13 U/L (12-78); ALBUMIN 1.9 G/DL (3.4-5.0); ALBUMIN/GLOBULIN RATIO 0.5 (1.1-1.5); ALKALINE PHOSPHATASE 135 IU/L (46-116); ANION GAP 11 (8-16); ASPARTATE AMINO TRANSFERASE 17 U/L (10-37); BILIRUBIN,TOTAL 0.3 MG/DL (0.1-1.0); BLOOD UREA NITROGEN 19 MG/DL (7-18); BUN/CREATININE RATIO 18.1 (6.6-38.0); CALCIUM 7.9 MG/DL (8.5-10.1); CHLORIDE 103 MMOL/L (99-107); CREATININE 1.05 MG/DL (0.40-0.90); GLUCOSE 131 MG/DL (70-104); MAGNESIUM 1.6 MG/DL (1.5-2.4); SODIUM 136 MMOL/L (135-145); TOTAL CARBON DIOXIDE 22.1 MMOL/L (24-32); TOTAL PROTEIN 5.4 G/DL (6.4-8.2); eGFR 51 ML/MIN
[2018-11-25 07:06] LABS: POTASSIUM 3.3 MMOL/L (3.5-5.1)
[2018-11-25] MEDS: amLODIPine 5mg tablet PO SCH (07:51)
[2018-11-25] MEDS: lactobacillus rhamnosus 10,000 MMU CELLS/CAPSULE PO SCH ×2 (07:51→19:07)
[2018-11-25] MEDS: metoprolol tartrate 25mg tablet PO SCH (07:51)
[2018-11-25] MEDS: metroNIDAZOLE-Flagyl 500mg/NS 100 ML IV SCH ×2 (07:53→15:27)
[2018-11-25] MEDS: aspirin 81mg tablet.DR PO SCH (07:53)
[2018-11-25] MEDS: docusate sod 100mg capsule PO SCH ×2 (07:54→19:13)
[2018-11-25] MEDS: sodium chloride 0.45% 1,000 ML IV SCH (07:54)
[2018-11-25] MEDS: K and/or MAG REPLACEMENT MC SCH (08:00)
[2018-11-25] MEDS: heparin, porcine 5000 units/ml vial SQ SCH ×2 (08:04→19:07)
[2018-11-25] MEDS: CefTRIAXone 2gm/D5W 50ml 50 ML IV SCH (09:40)
[2018-11-25] MEDS: insulin Lispro (HumaLOG) vial - multi-dose SQ SCH ×2 (09:53→13:36)
[2018-11-25 10:00] VITALS: BP 134/47
[2018-11-25] MEDS ORDERED: potassium Cl oral solution 20 MEQ/15 ML PO PRN ×2 (11:15→12:00)
--- NOTE | 2018-11-25 11:42 | NUR ---
DM consult, patient has A1C of 7.4 however not appropriate for education at this time due to confusion. Will monitor for DM education when patient is able, defer for now. Will continue to follow per protocol. Rec: 1. continue carb controlled diet per MD 2. encourage PO 3. monitor for ONS/appetite stimulant needs per MD approval 4. weekly wts Addendum: 11/25/18 at [address] Amended: Links added.
[2018-11-25] MEDS: potassium Cl oral solution 20 MEQ/15 ML PO PRN ×2 (11:46→11:49)
[2018-11-25] MEDS ORDERED: potassium Cl 20 mEq SR tablet PO PRN ×2 (11:55)
[2018-11-25] MEDS ORDERED: potassium Cl 40MEQ/NS 500ml 500 ML IV PRN ×2 (11:55)
[2018-11-25] MEDS ORDERED: magnesium 2GM in 50ml NS 50 ML IV PRN (11:55)
[2018-11-25] MEDS ORDERED: magnesium 4gm in 100ml NS 100 ML IV PRN (11:55)
--- NOTE | 2018-11-25 13:30 | NUR ---
I spoke with Dr. de la cruz about patient HR in low 40's again. He said to call him if it went down below 35, and that the lopressor should be out of her system in about 24 hrs.
[2018-11-25 18:00] VITALS: BP 147/46
--- NOTE | 2018-11-25 18:15 | NUR ---
Patient in room [facility]THO 4013A. I have received report from TK De La Paz and had the opportunity to ask questions and assume patient care.
--- NOTE | 2018-11-25 18:22 | NUR ---
I gave patient report to Yeni FREY
[2018-11-25] MEDS: atorvastatin 10mg tablet PO SCH (19:07)
[2018-11-25] MEDS: insulin glargine (Lantus) pen - multi-dose SQ SCH (20:19)
[2018-11-25 22:00] VITALS: BP 103/40
[2018-11-26] MEDS: metroNIDAZOLE-Flagyl 500mg/NS 100 ML IV SCH ×4 (00:01→23:59)
[2018-11-26] MEDS: sodium chloride 0.45% 1,000 ML IV SCH ×3 (05:42→15:29)
[2018-11-26 06:00] VITALS: BP 148/47
--- NOTE | 2018-11-26 06:32 | NUR ---
Problems reprioritized. Patient report given, questions answered & plan of care reviewed with TK Kerns.
[2018-11-26] MEDS: docusate sod 100mg capsule PO SCH (06:58)
[2018-11-26] MEDS: K and/or MAG REPLACEMENT MC SCH (08:00)
[2018-11-26] MEDS: CefTRIAXone 2gm/D5W 50ml 50 ML IV SCH (08:54)
[2018-11-26] MEDS: heparin, porcine 5000 units/ml vial SQ SCH ×2 (08:54→21:20)
[2018-11-26] MEDS: aspirin 81mg tablet.DR PO SCH (08:54)
[2018-11-26] MEDS: amLODIPine 5mg tablet PO SCH (08:55)
[2018-11-26] MEDS: lactobacillus rhamnosus 10,000 MMU CELLS/CAPSULE PO SCH ×2 (08:55→21:20)
[2018-11-26 10:00] VITALS: BP 157/57
[2018-11-26 18:00] VITALS: BP 129/58
--- NOTE | 2018-11-26 18:15 | NUR ---
RECEIVED REPORT FROM SHANA FREY AND ASSUMED PATIENT CARE
[2018-11-26] MEDS: insulin Lispro (HumaLOG) vial - multi-dose SQ SCH (19:10)
[2018-11-26] MEDS: insulin glargine (Lantus) pen - multi-dose SQ SCH (21:19)
[2018-11-26] MEDS: atorvastatin 10mg tablet PO SCH (21:20)
[2018-11-26 22:00] VITALS: BP 154/64
--- NOTE | 2018-11-27 06:30 | NUR ---
Patient in room ORTH[facility] 4013. I have received report from Aimee FREY and had the opportunity to ask questions and assume patient care.
[2018-11-27] MEDS: sodium chloride 0.45% 1,000 ML IV SCH (06:46)
[2018-11-27 06:47] LABS: BASOPHILS # (AUTO) 0.1 X10'3 (0-0.2); BASOPHILS % (AUTO) 0.6 % (0-1); EOSINOPHILS # (AUTO) 0.7 X10'3 (0-0.9); EOSINOPHILS % (AUTO) 5.7 % (0-6); HEMATOCRIT 36.4 % (35.0-45.0); HEMOGLOBIN 11.7 g/dl (12.0-16.0); LYMPHOCYTES # (AUTO) 2.1 X10'3 (1.1-4.8); MEAN CORPUSCULAR HEMOGLOBIN 28.6 PG (27.0-31.0); MEAN CORPUSCULAR HGB CONC 32.1 g/dL (33.0-36.5); MEAN CORPUSCULAR VOLUME 89.1 FL (78-98); MEAN PLATELET VOLUME 9.7 FL (7.4-10.4); MONOCYTES # (AUTO) 0.8 X10'3 (0-0.9); MONOCYTES % (AUTO) 6.8 % (2-12); NEUTROPHILS # (AUTO) 8.1 X10'3 (1.8-7.7); NEUTROPHILS % (AUTO) 68.9 % (42-75); PLATELET COUNT 278 X10'3 (140-440); RED BLOOD COUNT 4.08 X10'6 (4.20-5.60); RED CELL DISTRIBUTION WIDTH 13.8 % (11.5-14.5); WHITE BLOOD COUNT 11.7 X10'3 (4.5-11.0)
[2018-11-27 06:58] LABS: ANION GAP 10 (8-16); BLOOD UREA NITROGEN 15 MG/DL (7-18); BUN/CREATININE RATIO 17.6 (6.6-38.0); CALCIUM 8.2 MG/DL (8.5-10.1); CHLORIDE 108 MMOL/L (99-107); CREATININE 0.85 MG/DL (0.40-0.90); GLUCOSE 116 MG/DL (70-104); MAGNESIUM 1.6 MG/DL (1.5-2.4); POTASSIUM 3.2 MMOL/L (3.5-5.1); SODIUM 140 MMOL/L (135-145); TOTAL CARBON DIOXIDE 22.1 MMOL/L (24-32); eGFR 66 ML/MIN
[2018-11-27 08:26] VITALS: BP 141/54
[2018-11-27] MEDS: metroNIDAZOLE-Flagyl 500mg/NS 100 ML IV SCH (08:33)
[2018-11-27] MEDS: amLODIPine 5mg tablet PO SCH (08:34)
[2018-11-27] MEDS: aspirin 81mg tablet.DR PO SCH (08:34)
[2018-11-27] MEDS: lactobacillus rhamnosus 10,000 MMU CELLS/CAPSULE PO SCH (08:34)
[2018-11-27] MEDS: heparin, porcine 5000 units/ml vial SQ SCH (08:34)
[2018-11-27] MEDS: CefTRIAXone 2gm/D5W 50ml 50 ML IV SCH (11:02)
[2018-11-27 11:25] VITALS: BP 131/64
[2018-11-27] MEDS: insulin Lispro (HumaLOG) vial - multi-dose SQ SCH (14:01)
--- NOTE | 2018-11-27 14:40 | NUR ---
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 Patient is able to transport by wheel chair.
--- NOTE | 2018-11-27 15:02 | NUR ---
Liss picked up patient. All belongings with patients and taken home. IV discontinued, cannula intact.
== END 2018-11-27 14:45 | DRG 871 ==
LOC: ER 14:55 → ED HOLD 18:03 → CMPBEDREQ 22:38 → ORTHO 4S 22:45
PROVIDERS: ADMIT Internal Medicine; ATTEND Hospitalist
DX: A41.9 Sepsis, unspecified organism (principal); G93.41 Metabolic encephalopathy; N17.9 Acute kidney failure, unspecified; I69.954 Hemiplegia and hemiparesis following unspecified cerebrovascular disease affecting left non-dominant side; A09 Infectious gastroenteritis and colitis, unspecified; I25.10 Atherosclerotic heart disease of native coronary artery without angina pectoris; I48.91 Unspecified atrial fibrillation; E78.00 Pure hypercholesterolemia, unspecified; I10 Essential (primary) hypertension; E11.9 Type 2 diabetes mellitus without complications; G89.29 Other chronic pain; M54.9 Dorsalgia, unspecified; E87.6 Hypokalemia; F03.90 Unspecified dementia, unspecified severity, without behavioral disturbance, psychotic disturbance, mood disturbance, and anxiety; E86.0 Dehydration; Z95.1 Presence of aortocoronary bypass graft; Z79.82 Long term (current) use of aspirin; Z79.4 Long term (current) use of insulin; I25.2 Old myocardial infarction; Z87.01 Personal history of pneumonia (recurrent)
CPT/HCPCS: 36415; 70450; 71045; 71250; 74176; 80048; 80053; 80061; 80202; 81003; 82948; 83605; 83735; 84145; 84484; 85025; 85610; 85651; 87040; 87045; 87046; 87070; 87502; 87503; 89055; 92616; 93005; 93308; 93880; 96365; 97110; 97116; 97161; 97530; 99285; G0378; J0696; J1644; J1815; J2060; J3370; J3480; J3490

== ENCOUNTER 2018-12-03 22:33 | Emergency (ER) | payer MEDICARE, OTHER ==
[~2018-12-03] VITALS: Ht 170.2 cm; Wt 70.0 kg
[~2018-12-03 22:33] MED LIST changes: -DOCU-28 PO; +HYDR12.5 PO; -INSU100V30 SQ; +INSU100V9 SQ; -LEVO100T46 PO; -LEVO750T21 PO; -MULT-933 PO; +OLAN10TA19 PO
--- NOTE | 2018-12-03 23:04 | NUR ---
vaginal exam deferred to provider see florencia.
[2018-12-04 00:14] LABS: ALANINE AMINOTRANSFERASE 13 U/L (12-78); ALBUMIN 2.7 G/DL (3.4-5.0); ALBUMIN/GLOBULIN RATIO 0.8 (1.1-1.5); ALKALINE PHOSPHATASE 60 IU/L (46-116); ANION GAP 7 (8-16); ASPARTATE AMINO TRANSFERASE 19 U/L (10-37); BILIRUBIN,TOTAL 0.3 MG/DL (0.1-1.0); BLOOD UREA NITROGEN 10 MG/DL (7-18); BUN/CREATININE RATIO 11.2 (6.6-38.0); CALCIUM 8.8 MG/DL (8.5-10.1); CHLORIDE 106 MMOL/L (99-107); CREATININE 0.89 MG/DL (0.40-0.90); GLUCOSE 108 MG/DL (70-104); POTASSIUM 3.6 MMOL/L (3.5-5.1); SODIUM 143 MMOL/L (135-145); TOTAL CARBON DIOXIDE 30.1 MMOL/L (24-32); TOTAL PROTEIN 6.2 G/DL (6.4-8.2); eGFR 62 ML/MIN
--- NOTE | 2018-12-04 00:30 | NUR ---
Straight Cath done, patient is resting comfortably on gurney now.
[2018-12-04 00:35] LABS: BASOPHILS % (AUTO) 0.4 % (0-1); EOSINOPHILS # (AUTO) 0.1 X10'3 (0-0.9); EOSINOPHILS % (AUTO) 2.1 % (0-6); HEMATOCRIT 40.9 % (35.0-45.0); HEMOGLOBIN 13.3 g/dl (12.0-16.0); LYMPHOCYTES # (AUTO) 1.5 X10'3 (1.1-4.8); LYMPHOCYTES % (AUTO) 21.9 % (21-51); MEAN CORPUSCULAR HEMOGLOBIN 29.2 PG (27.0-31.0); MEAN CORPUSCULAR HGB CONC 32.6 g/dL (33.0-36.5); MEAN CORPUSCULAR VOLUME 89.7 FL (78-98); MEAN PLATELET VOLUME 8.7 FL (7.4-10.4); MONOCYTES # (AUTO) 0.5 X10'3 (0-0.9); MONOCYTES % (AUTO) 7.8 % (2-12); NEUTROPHILS # (AUTO) 4.8 X10'3 (1.8-7.7); NEUTROPHILS % (AUTO) 67.8 % (42-75); PLATELET COUNT 329 X10'3 (140-440); RED BLOOD COUNT 4.57 X10'6 (4.20-5.60); RED CELL DISTRIBUTION WIDTH 14.5 % (11.5-14.5)
[2018-12-04 00:35] LABS: CLARITY,URINE CLEAR (Clear); COLOR,URINE YELLOW (Yellow); GLUCOSE, URINE NEGATIVE (Neg); KETONES,URINE 15 mg/dl (Neg); LEUKOCYTE ESTERASE ,URINE NEGATIVE (Neg); NITRITES, URINE NEGATIVE (Neg); OCCULT BLOOD,URINE NEGATIVE (Neg); PH,URINE 5.5 (4.8-8.0); PROTEIN,URINE NEGATIVE (Neg); UROBILINOGEN,URINE 0.2 E.U/dL (0.2-1.0)
[2018-12-04 00:36] LABS: UA COLLECTION TYPE NON-SPECIFIED
[2018-12-04] MEDS ORDERED: azithromycin 250mg tablet PO ONE (01:10)
[2018-12-04] MEDS ORDERED: CefTRIAXone 250MG inj IM ONE (01:10)
--- NOTE | 2018-12-04 01:14 | NUR ---
[facility] was contacted to get a better understanding of patient PMH. the [facility] stated that the patient has type 2 diabetes, left-sided weakness and an altered baseline. They stated that she was addmitted to facility just a week ago. Eddie her is in charge of her care.
[2018-12-04] MEDS ORDERED: CefTRIAXone 1000mg IM Kit (w/lidocaine diluent) IM ONE (01:30)
[2018-12-04 02:34] VITALS: BP 159/61
== END 2018-12-04 02:42 ==
LOC: ER 22:34
DX: N89.8 Other specified noninflammatory disorders of vagina (principal); Z86.73 Personal history of transient ischemic attack (TIA), and cerebral infarction without residual deficits; I48.91 Unspecified atrial fibrillation; I25.10 Atherosclerotic heart disease of native coronary artery without angina pectoris; E78.00 Pure hypercholesterolemia, unspecified; I10 Essential (primary) hypertension; I25.2 Old myocardial infarction; E11.9 Type 2 diabetes mellitus without complications; G89.29 Other chronic pain; Z79.82 Long term (current) use of aspirin; Z79.4 Long term (current) use of insulin; Z79.899 Other long term (current) drug therapy
CPT/HCPCS: 36415; 80053; 81003; 85025; 87210; 87491; 87591; 96372; 99283; J0696; P9612

== ENCOUNTER 2019-02-15 13:58 | Outpatient (CLI) | payer MEDICARE, OTHER ==
[2019-02-17] MEDS ORDERED: MIRT15TA PO (21:14)
[2019-02-17] MEDS ORDERED: LEVO100T PO (21:14)
[2019-02-17] MEDS ORDERED: ZOLP5TAB2 PO (21:14)
[2019-02-17] MEDS ORDERED: TRAM50TA2 PO (21:14)
== END 2019-02-15 23:59 | disposition home or self-care (01) ==
LOC: VAS 13:58
PROVIDERS: ATTEND Family Medicine
DX: R60.0 Localized edema (principal); M79.89 Other specified soft tissue disorders; M79.642 Pain in left hand; R53.1 Weakness; I10 Essential (primary) hypertension; E11.9 Type 2 diabetes mellitus without complications; Z95.1 Presence of aortocoronary bypass graft
CPT/HCPCS: 71046; 93971

== ENCOUNTER → 2019-02-16 | Outpatient (CLI) | payer MEDICARE, OTHER ==
[~2019-02-16] MED LIST changes: +LEVO100T PO; +MIRT15TA PO; +TRAM50TA2 PO; +ZOLP5TAB2 PO
[2019-02-16 09:12] LABS: ALANINE AMINOTRANSFERASE 20 U/L (12-78); ALBUMIN 2.9 G/DL (3.4-5.0); ALBUMIN/GLOBULIN RATIO 0.7 (1.1-1.5); ALKALINE PHOSPHATASE 93 IU/L (46-116); ANION GAP 7 (8-16); ASPARTATE AMINO TRANSFERASE 13 U/L (10-37); BILIRUBIN,TOTAL 0.4 MG/DL (0.1-1.0); BLOOD UREA NITROGEN 20 MG/DL (7-18); BUN/CREATININE RATIO 18.7 (6.6-38.0); CALCIUM 8.9 MG/DL (8.5-10.1); CHLORIDE 104 MMOL/L (99-107); CREATININE 1.07 MG/DL (0.40-0.90); GLUCOSE 167 MG/DL (70-104); POTASSIUM 4.2 MMOL/L (3.5-5.1); SODIUM 140 MMOL/L (135-145); TOTAL CARBON DIOXIDE 29.2 MMOL/L (24-32); TOTAL PROTEIN 7.3 G/DL (6.4-8.2); eGFR 50 ML/MIN
== END | disposition home or self-care (01) ==
LOC: LAB 07:53
PROVIDERS: ATTEND Family Medicine
DX: I10 Essential (primary) hypertension (principal); E11.9 Type 2 diabetes mellitus without complications; M79.89 Other specified soft tissue disorders
CPT/HCPCS: 36415; 80053; 83880; 85651

== ENCOUNTER 2019-04-05 01:33 | Emergency (ER) | payer MEDICARE, OTHER ==
[~2019-04-05] VITALS: Ht 152.4 cm; Wt 68.2 kg
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
[2019-04-05] MEDS ORDERED: ONDA4TAB6 PO (04:09)
[2019-04-05] MEDS ORDERED: HYDR-4353 PO (04:09)
[2019-04-05 04:51] VITALS: BP 115/71
== END 2019-04-05 04:40 | disposition home or self-care (01) ==
LOC: ER 01:34
DX: S42.212A Unspecified displaced fracture of surgical neck of left humerus, initial encounter for closed fracture (principal); I48.91 Unspecified atrial fibrillation; I25.10 Atherosclerotic heart disease of native coronary artery without angina pectoris; E78.5 Hyperlipidemia, unspecified; I10 Essential (primary) hypertension; I25.2 Old myocardial infarction; E11.9 Type 2 diabetes mellitus without complications; G89.29 Other chronic pain; Z79.82 Long term (current) use of aspirin; Z79.899 Other long term (current) drug therapy; Z86.73 Personal history of transient ischemic attack (TIA), and cerebral infarction without residual deficits; Z98.890 Other specified postprocedural states; Z95.1 Presence of aortocoronary bypass graft; W18.39XA Other fall on same level, initial encounter; Y93.01 Activity, walking, marching and hiking; Y92.89 Other specified places as the place of occurrence of the external cause; Y99.8 Other external cause status
CPT/HCPCS: 29105; 73030; 99284